=== PATIENT | female | born 1955 | race Caucasian/White ===

== ENCOUNTER 2018-12-28 20:18 | Inpatient (IN) | payer MEDICARE ==
[~2018-12-28] VITALS: Ht 165.1 cm; Wt 96.7 kg
[~2018-12-28 20:18] MED LIST: RT-ALBUTEROL SULF 2.5 MG/3 ML PRE-MIX VIAL ONE; RT-ALBUTEROL/IPRATROPIUM 3 ML (DUONEB) VIAL ONE
--- OUTSIDE RECORDS SUMMARY | 2018-12-28 20:21 | XMS REPORT ---
Author Author MARILEE DOOLEY Organization [facility] Address [address] [place] [address] Care Team Providers Care Stock Tracer Name Role Phone MARILEE DOOLEY Unavailable PROBLEMS Type Condition ICD9-CM Code TMB75-UR Code Onset Dates Condition Status SNOMED Code Problem Lumbar radiculopathy M54.16 Active 091064617 ALLERGIES Substance Reaction Event Type Date Status Tanac kidney function Drug Allergy Jan, Active ENCOUNTERS Encounter Location Date Diagnosis [facility] [id number] [place] [phone] Jan, Lumbar radiculopathy M54.16 [facility] [id number] [place] [phone] Jan, [facility] [id number] [place] [phone] Jan, Injury of left hip, initial encounter S79.912A IMMUNIZATIONS No Known Immunizations SOCIAL HISTORY Never Assessed REASON FOR VISIT Establish Care, left leg pain and was seen in walk in last week-Vale FUENTES PLAN OF CARE Activity Details Follow Up prn Reason: VITAL SIGNS Height 65 in 2018-01-15 Weight 222.2 lbs 2018-01-15 Temperature 98.4 degrees Fahrenheit 2018-01-15 Heart Rate 83 bpm 2018-01-15 Respiratory Rate 20 2018-01-15 Oximetry 94 % 2018-01-15 BMI 36.97 kg/m2 2018-01-15 Blood pressure systolic 130 mmHg 2018-01-15 Blood pressure diastolic 88 mmHg 2018-01-15 MEDICATIONS Medication Instructions Dosage Frequency Start Date End Date Duration Status Naprosyn 500 mg Orally every 12 hrs 1 tablet with food or milk as needed 12h 2018 Active Aleve 220 MG Orally every 12 hrs 1 tablet with food or milk as needed 12h Active Aspirin 325 MG Orally Once a day 1 tablet 24h Active RESULTS No Results PROCEDURES Procedure Date Ordered Result Body Site [facility] VISIT ESTABLISHED PATIENT January 15, 2018 INSTRUCTIONS MEDICATIONS ADMINISTERED No Known Medications MEDICAL (GENERAL) HISTORY Type Description Date Surgical History benign tumor removed off scalp 1999 Surgical History cataract surgery bilaterally 2016 Hospitalization History kidney function 12/1972
--- OUTSIDE RECORDS SUMMARY | 2018-12-28 20:22 | XMS REPORT ---
Author Author VERNA ZUÑIGA Organization [facility] Address [address] [place] [address] Care Team Providers Care Truck Striker Name Role Phone VERNA ZUÑIGA Unavailable PROBLEMS Type Condition ICD9-CM Code [id number]-VE Code Onset Dates Condition Status SNOMED Code Problem Lumbar radiculopathy M54.16 Active [id number] ALLERGIES No Information ENCOUNTERS Encounter Location Date Diagnosis [facility] [id number] [place] [phone] Jan, Lumbar radiculopathy M54.16 [facility] [id number], [place] [address] Jan, [facility] [id number] [place] [phone] Jan, Injury of left hip, initial encounter S79.912A IMMUNIZATIONS No Known Immunizations SOCIAL HISTORY Never Assessed REASON FOR VISIT PLAN OF CARE VITAL SIGNS MEDICATIONS Unknown Medications RESULTS No Results PROCEDURES No Known procedures INSTRUCTIONS MEDICATIONS ADMINISTERED No Known Medications MEDICAL (GENERAL) HISTORY Type Description Date Surgical History benign tumor removed off scalp 1999 Surgical History cataract surgery bilaterally 2016 Hospitalization History kidney function 12/1972
--- OUTSIDE RECORDS SUMMARY | 2018-12-28 20:22 | XMS REPORT ---
Author Author VERNA ZUÑIGA Organization [facility] Address [address] [place] [address] Care Team Providers Care Antenna Design Engineer Name Role Phone VERNA ZUÑIGA Unavailable PROBLEMS Type Condition ICD9-CM Code FSO68-MZ Code Onset Dates Condition Status SNOMED Code Problem Lumbar radiculopathy M54.16 Active 530805086 ALLERGIES No Known Allergies ENCOUNTERS Encounter Location Date Diagnosis [facility] [place] [address] [place] [phone] Jan, Lumbar radiculopathy M54.16 [facility] [id number] [address] Jan, [facility] [id number] [place] [phone] Jan, Injury of left hip, initial encounter S79.912A IMMUNIZATIONS Vaccine Route Administration Date Status TORADOL (IM) 60 MG/2ML (UP TO 15 MG) IM Intramuscular January 06, 2018 Administered SOCIAL HISTORY Never Assessed REASON FOR VISIT left hip pain for 3 weeks. fell on concrete. thought she was gonna be ok after t he fall...then 2 days ago...started having pain again et denies any injury the s econd time. [email or web address] PLAN OF CARE Activity Details Follow Up January 15 w/ Dr. Pickett Reason:establish care VITAL SIGNS Height 65 in 2018-01-06 Weight 215.4 lbs 2018-01-06 Temperature 98.3 degrees Fahrenheit 2018-01-06 Heart Rate 96 bpm 2018-01-06 Respiratory Rate 22 2018-01-06 BMI 35.84 kg/m2 2018-01-06 Blood pressure systolic 138 mmHg 2018-01-06 Blood pressure diastolic 92 mmHg 2018-01-06 MEDICATIONS Medication Instructions Dosage Frequency Start Date End Date Duration Status Aspirin 325 MG Orally Once a day 1 tablet 24h Active Ibuprofen 800 MG Orally Three times a day 1 tablet with food or milk as needed 8h Jan, Jan, 07 days Active Aleve 220 MG Orally every 12 hrs 1 tablet with food or milk as needed 12h Active RESULTS Name Result Date Reference Range Xray : Hip, Left 2 views (IN HOUSE) 2018-01-06 PROCEDURES Procedure Date Ordered Result Body Site X-RAY EXAM HIP UNI 2-3 VIEWS January 06, 2018 TORADOL (IM) 60 MG/2ML (UP TO 15 MG) January 06, 2018 [facility] VISIT NEW PATIENT January 06, 2018 THER/PROPH/DIAG INJ, SC/IM January 06, 2018 INSTRUCTIONS MEDICATIONS ADMINISTERED No Known Medications MEDICAL (GENERAL) HISTORY Type Description Date Surgical History benign tumor removed off scalp 1999 Surgical History cataract surgery bilaterally 2016 Hospitalization History kidney function 12/1972
[2018-12-28] MEDS ORDERED: NS IV 1000 ML 1,000 ML IV SCH (20:26)
[2018-12-28] MEDS ORDERED: RT-ALBUTEROL SULF 2.5 MG/3 ML PRE-MIX VIAL INH STA ×2 (20:26→22:29)
[2018-12-28] MEDS ORDERED: RT-ALBUTEROL/IPRATROPIUM 3 ML (DUONEB) VIAL INH ONE (20:30)
[2018-12-28 20:39] LABS: BASOPHILS % (AUTO) 0 % (0-10); EOSINOPHILS # (AUTO) 0.1 10^3/uL (0.0-0.3); EOSINOPHILS % (AUTO) 0 % (0-10); HEMATOCRIT 40 % (35-52); HEMOGLOBIN 13.3 G/DL (11.5-16.0); LYMPHOCYTES # (AUTO) 3.4 X 10^3 (1.0-4.0); LYMPHOCYTES % (AUTO) 28 % (12-44); MEAN CORPUSCULAR HEMOGLOBIN 31 PG (25-34); MEAN CORPUSCULAR HGB CONC 33 G/DL (32-36); MEAN CORPUSCULAR VOLUME 92 FL (80-99); MEAN PLATELET VOLUME 11.7 FL (7.4-10.4); MONOCYTES # (AUTO) 1.3 X 10^3 (0.0-1.0); MONOCYTES % (AUTO) 11 % (0-12); NEUTROPHILS # (AUTO) 7.5 X 10^3 (1.8-7.8); NEUTROPHILS % (AUTO) 61 % (42-75); PLATELET COUNT 121 10^3/uL (130-400); RED CELL DISTRIBUTION WIDTH 13.8 % (10.0-14.5); WHITE BLOOD COUNT 12.2 10^3/uL (4.3-11.0)
[2018-12-28 20:48] LABS: INR 1.1 (0.8-1.4); PROTHROMBIN TIME PATIENT 14.1 SEC (12.2-14.7)
--- NOTE | 2018-12-28 20:50 | Diagnostic Imaging Report ---
PATIENT HISTORY: Chest pain and shortness of breath. TECHNIQUE: Single frontal view of the chest COMPARISON: None FINDINGS: Lung volumes are normal. There are mildly increased interstitial opacities throughout the lungs bilaterally. There is fluid in the right minor fissure. Mild airspace opacity is seen in the right upper lobe. The cardiac silhouette is upper normal in size. No pneumothorax or pleural effusion is seen. IMPRESSION: 1. Interstitial opacities bilaterally with minimal airspace opacity in the right upper lobe. Findings are thought to be due to edema, or possibly infection. 2. A small amount of fluid in the right minor fissure. Dictated by: Dictated on workstation # [id number]
[2018-12-28 20:55] LABS: ALANINE AMINOTRANSFERASE 42 U/L (0-55); ALBUMIN 3.7 GM/DL (3.2-4.5); ALKALINE PHOSPHATASE 116 U/L (40-136); BILIRUBIN,TOTAL 1.3 MG/DL (0.1-1.0); BUN/CREATININE RATIO 14; CALCIUM 8.4 MG/DL (8.5-10.1); CARBON DIOXIDE 23 MMOL/L (21-32); CHLORIDE 102 MMOL/L (98-107); CREATININE SERUM 0.73 MG/DL (0.60-1.30); GFR ESTIMATED > 60; GLUCOSE 107 MG/DL (70-105); POTASSIUM 3.8 MMOL/L (3.6-5.0); SODIUM 136 MMOL/L (135-145); TOTAL PROTEIN 6.3 GM/DL (6.4-8.2)
--- NOTE | 2018-12-28 20:56 | ED General ---
General Chief Complaint: Respiratory Problems Stated Complaint: SOB Nursing Triage Note: Pt amb to room #5 with audible breath sounds heard. a&ox4. c/o soa and fever that began yesterday. Pt reports throughout this day severity of symptoms increased. Pt statets, "i think i have pneumonia. Initial o2 sat 88% via ra. Nursing Sepsis Screen: Possible Sepsis Risk Source of Information: Patient Exam Limitations: No Limitations (JUANA JOAQUIN MEDICAL STUDENT) History of Present Illness Date Seen by Provider: Dec 28, 2018 Time Seen by Provider: 20:23 Initial Comments Pt presents to ED c/o SOB and chills since yesterday morning. Reports productive cough and brown sputum without blood. Pt admits to sick contacts and feels like she may have pneumonia again. Pt has seasonal allergies that frequently cause flares. Usually Nyquil and benadryl improves her breathing, but failed to lessen her symptoms this time. Admits to long history of bronchitis and pneumonia. Pt denies the use of home oxygen or inhalers. Occasionally, she sees [facility], but notes that she avoids doctors "because [she] has not had good experiences with them". Timing/Duration: 1-2 Days Severity: Severe Associated Systoms: No Chest Pain; Cough, Fever/Chills; No Nausea/Vomiting; Shortness of Air; No Weakness (JUANA JOAQUIN STUDENT) Severity: Moderate Associated Systoms: Cough, Fever/Chills, Shortness of Air (SKYE STEVENS MD) Allergies and Home Medications Allergies Coded Allergies: No Known Drug Allergies (Unverified , 12/28/18) Patient Home Medication List Home Medication List Reviewed: Yes (JUANA JOAQUIN STUDENT) Home Medication List Reviewed: Yes (SKYE STEVENS MD) Review of Systems Review of Systems Constitutional: chills, fever EENTM: no symptoms reported Respiratory: phlegm, short of breath Cardiovascular: No chest pain Gastrointestinal: no symptoms reported; No abdominal pain, No constipation, No diarrhea Genitourinary: no symptoms reported Musculoskeletal: no symptoms reported Skin: no symptoms reported Psychiatric/Neurological: No Symptoms Reported Hematologic/Lymphatic: No Symptoms Reported Immunological/Allergic: no symptoms reported (JUANA JOAQUIN STUDENT) Respiratory: cough, short of breath Cardiovascular: No edema, No palpitations Gastrointestinal: No nausea, No vomiting (SKYE STEVNES MD) All Other Systems Reviewed Negative Unless Noted: Yes (SKYE STEVENS MD) Past Awuvhfs-Jfylhn-Lnhigv Hx Past Med/Social Hx: Reviewed Nursing Past Med/Soc Hx (SKYE SETVENS MD) Patient Social History Alcohol Use: Regular Use (2-3 drinks per day) Number of Drinks Today: 0 Alcohol Beverage of Choice: Whiskey Recreational Drug Use: No (HX: IV METHAMPHETAMINES ) Smoking Status: Current Everyday Smoker Type Used: Cigarettes (1ppd) 2nd Hand Smoke Exposure: Yes Recent Foreign Travel: No Contact w/Someone Who Travel: No Recent Infectious Disease Expo: No Recent Hopitalizations: No (JUANA JOAQUIN MEDICAL STUDENT) Seasonal Allergies Seasonal Allergies: No (JUANA JOAQUIN MEDICAL STUDENT) Past Medical History Surgeries: No Respiratory: Yes Pneumonia, Chronic Bronchitis Cardiac: No Neurological: No Genitourinary: No Gastrointestinal: No Musculoskeletal: Yes Chronic Back Pain Endocrine: No Cancer: No Integumentary: No (JUANA JOAQUIN MEDICAL STUDENT) Family Medical History Reviewed Nursing Family Hx (SKYE STEVENS MD) No Pertinent Family Hx (SKYE STEVENS MD) Physical Exam-Suspected Sepsis Physical Exam Vital Signs Vital Signs - First Documented (SKYE STEVENS MD) Vital Signs Capillary Refill : Less Than 3 Seconds (JUANA JOAQUIN MEDICAL STUDENT) Blood Pressure Mean: 113 Height, Weight, BMI Height: 5'5.00" Weight: 250lbs. oz. 113.642288gk; BMI Method:Stated General Appearance: Severe Distress Eyes: Bilateral Eye PERRL, Bilateral Eye EOMI HEENT: PERRL/EOMI, Pharynx Normal Neck: Full Range of Motion, Non Tender Respiratory: Respiratory Distress, Wheezing (expiratory) Cardiovascular: Regular Rate, Rhythm, No Murmur, Normal Peripheral Pulses Gastrointestinal: Normal Bowel Sounds, Non Tender, Soft Back: Normal Inspection, No Vertebral Tenderness Extremity: No Pedal Edema, Calf Tenderness Neurologic/Psychiatric: Alert, Oriented x3 Skin: normal color, warm/dry (JUANA JOAQUIN MEDICAL STUDENT) General Appearance: WD/WN, Moderate Distress HEENT: PERRL/EOMI, Pharynx Normal Neck: Full Range of Motion, Non Tender, Supple Respiratory: Respiratory Distress, Wheezing (expiratory) Cardiovascular: Regular Rate, Rhythm, No Murmur Gastrointestinal: Non Tender, Soft Extremity: Normal Range of Motion, Non Tender, No Pedal Edema Neurologic/Psychiatric: Alert, Oriented x3 Skin: normal color, warm/dry (SKYE STEVENS MD) Focused Exam Lactate Level 12/28/18 20:26: Lactic Acid Level 1.34 (SKYE STEVENS MD) Lactic Acid Level Laboratory Tests Test 12/28/18 20:26 Lactic Acid Level 1.34 MMOL/L (0.50-2.00) (SKYE STEVENS MD) Progress/Results/Core Measures Suspected Sepsis Recent Fever Within 48 Hours: Yes Infection Criteria Present: Suspected New Infection New/Unexplained Altered Menta: No Sepsis Screen: Possible Sepsis Risk SIRS Temperature:99.0 Pulse: 104 Respiratory Rate: 26 Laboratory Tests 12/28/18 20:26: White Blood Count 12.2H Blood Pressure 146 /97 Mean: 113 12/28/18 20:26: Lactic Acid Level 1.34 Laboratory Tests 12/28/18 20:26: Creatinine 0.73, INR Comment 1.1, Platelet Count 121L, Total Bilirubin 1.3H (JUANA JOAQUIN MEDICAL STUDENT) Results/Orders Lab Results Laboratory Tests Test 12/28/18 20:26 Range/Units White Blood Count 12.2 H 4.3-11.0 10^3/uL Red Blood Count 4.33 L 4.35-5.85 10^6/uL Hemoglobin 13.3 11.5-16.0 G/DL Hematocrit 40 35-52 % Mean Corpuscular Volume 92 80-99 FL Mean Corpuscular Hemoglobin 31 25-34 PG Mean Corpuscular Hemoglobin Concent 33 32-36 G/DL Red Cell Distribution Width 13.8 10.0-14.5 % Platelet Count 121 L 130-400 10^3/uL Mean Platelet Volume 11.7 H 7.4-10.4 FL Neutrophils (%) (Auto) 61 42-75 % Lymphocytes (%) (Auto) 28 12-44 % Monocytes (%) (Auto) 11 0-12 % Eosinophils (%) (Auto) 0 0-10 % Basophils (%) (Auto) 0 0-10 % Neutrophils # (Auto) 7.5 1.8-7.8 X 10^3 Lymphocytes # (Auto) 3.4 1.0-4.0 X 10^3 Monocytes # (Auto) 1.3 H 0.0-1.0 X 10^3 Eosinophils # (Auto) 0.1 0.0-0.3 10^3/uL Basophils # (Auto) 0.0 0.0-0.1 10^3/uL Prothrombin Time 14.1 12.2-14.7 SEC INR Comment 1.1 0.8-1.4 Activated Partial Thromboplast Time 36 H 24-35 SEC Sodium Level 136 135-145 MMOL/L Potassium Level 3.8 3.6-5.0 MMOL/L Chloride Level 102 98-107 MMOL/L Carbon Dioxide Level 23 21-32 MMOL/L Anion Gap 11 5-14 MMOL/L Blood Urea Nitrogen 10 7-18 MG/DL Creatinine 0.73 0.60-1.30 MG/DL Estimat Glomerular Filtration Rate > 60 BUN/Creatinine Ratio 14 Glucose Level 107 H 70-105 MG/DL Lactic Acid Level 1.34 0.50-2.00 MMOL/L Calcium Level 8.4 L 8.5-10.1 MG/DL Corrected Calcium 8.6 8.5-10.1 MG/DL Total Bilirubin 1.3 H 0.1-1.0 MG/DL Aspartate Amino Transf (AST/SGOT) 52 H 5-34 U/L Alanine Aminotransferase (ALT/SGPT) 42 0-55 U/L Alkaline Phosphatase 116 40-136 U/L Troponin I < 0.028 <0.028 NG/ML Total Protein 6.3 L 6.4-8.2 GM/DL Albumin 3.7 3.2-4.5 GM/DL (SKYE STEVENS MD) My Orders Orders - SKYE STEVENS MD Albuterol Pre-Mix Nebs (Rt) (Proventil (12/28/18 20:18) Albuterol/Ipra Inhalation Soln (Duoneb I (12/28/18 20:18) Cbc With Automated Diff (12/28/18 20:26) Comprehensive Metabolic Panel (12/28/18 20:26) Blood Culture (12/28/18 20:26) Sputum Culture (12/28/18 20:26) Urinalysis (12/28/18 20:26) Urine Culture (12/28/18 20:26) Protime With Inr (12/28/18 20:26) Partial Thromboplastin Time (12/28/18 20:26) Chest 1 View, Ap/Pa Only (12/28/18 20:26) Ed Iv/Invasive Line Start (12/28/18 20:26) Ekg Tracing (12/28/18 20:26) Troponin I (12/28/18 20:26) Vital Signs Adult Sepsis Patie Q15M (12/28/18 20:26) O2 (12/28/18 20:26) Remove Rings In Anticipation O (12/28/18 20:26) Lactic Acid Analyzer (12/28/18 20:26) Ns Iv 1000 Ml (Sodium Chloride 0.9%) (12/28/18 20:26) Albuterol Pre-Mix Nebs (Rt) (Proventil (12/28/18 20:26) Albuterol/Ipra Inhalation Soln (Duoneb I (12/28/18 20:30) Svn Small Volume Nebulizer (12/28/18 20:26) Svn Small Volume Nebulizer (12/28/18 20:26) Albuterol Pre-Mix Nebs (Rt) (Proventil (12/28/18 22:29) Methylprednisolone Sod Succ (Solu-Medrol (12/28/18 22:29) Svn Small Volume Nebulizer (12/28/18 22:29) Ceftriaxone For Iv Use (Rocephin For I (12/28/18 22:30) (SKYE STEVENS MD) Medications Given in ED Current Medications Medications Dose Ordered Sig/Brian Route Start Time Stop Time Status Last Admin Dose Admin Albuterol Sulfate 2.5 mg STK-MED ONCE .ROUTE 12/28/18 20:18 12/28/18 20:23 DC 12/28/18 20:39 2.5 MG Albuterol/ Ipratropium 3 ml STK-MED ONCE .ROUTE 12/28/18 20:18 12/28/18 20:23 DC 12/28/18 20:29 3 ML (SKYE STEVENS MD) Vital Signs/I&O 12/28/18 12/28/18 12/28/18 12/28/18 20:18 20:18 20:31 20:37 Temp 99.0 Pulse 104 Resp 26 B/P (MAP) 146/97 (113) Pulse Ox 95 95 94 O2 Delivery Nasal Cannula Nasal Cannula Nasal Cannula Nasal Cannula O2 Flow Rate 2.00 2.00 2.00 2.00 (SKYE STEVENS MD) Vital Signs/I&O Capillary Refill : Less Than 3 Seconds (JUANA JOAQUIN MEDICAL STUDENT) Blood Pressure Mean: 113 Progress Note : Progress Note I have seen and evaluated the patient and agree with above except as indicated. I have directed the plan of care. Patient is here with 2 days of increasing shortness of breath and cough. She's been unable to smoke during that time. She has tried [id number] medicines without relief. Arrives in some in extremis and required oxygen. Improved with oxygen. DuoNeb and albuterol 2 ordered as well as labs for septic workup. This did help greatly but then started having some mild respiratory distress again. Albuterol neb repeated. Given patient's finding of pneumonia and COPD, admission is indicated. Rocephin 1 g IV ordered. We will initiate community-acquired pneumonia protocol. I did discuss the case with Dr. Ziegler [phone] and she accepts patient for admission, inpatient status. Patient agrees with plan. Solu-Medrol 125 mg IV initiated and will be continued. (SKYE STEVENS MD) ECG Initial ECG Impression Date: Dec 28, 2018 Initial ECG Impression Time: 20:22 Initial ECG Rate: 99 Initial ECG Rhythm: Normal Sinus Comment Sinus rhythm with left axis deviation. No evidence of ST elevation [place]. No previous available for comparison. Interpreted by me. (SKYE STEVENS MD) Diagnostic Imaging Diagonstic Imaging: Xray Comments NAME: QUETA DE LEON [facility] REC#: [id number] PT STATUS: REG ER : 1955 PHYSICIAN: SKYE STEVENS MD ADMIT DATE: 12/28/18/ER Draft Date of Exam:12/28/18 CHEST 1 VIEW, AP/PA ONLY PATIENT HISTORY: Chest pain and shortness of breath. TECHNIQUE: Single frontal view of the chest COMPARISON: None FINDINGS: Lung volumes are normal. There are mildly increased interstitial opacities throughout the lungs bilaterally. There is fluid in the right minor fissure. Mild airspace opacity is seen in the right upper lobe. The cardiac silhouette is upper normal in size. No pneumothorax or pleural effusion is seen. IMPRESSION: 1. Interstitial opacities bilaterally with minimal airspace opacity in the right upper lobe. Findings are thought to be due to edema, or possibly infection. 2. A small amount of fluid in the right minor fissure. Dictated on workstation # [id number] Dict: 12/28/182043 Trans: 12/28/182049 [facility] [id number] Interpreted by: NORMA MARES MD Electronically signed by: (JUANA JOAQUIN MEDICAL STUDENT) Reviewed: Reviewed by Me (SKYE STEVENS MD) Departure Communication (Admissions) Time/Spoke to Admitting Phy: 22:20 (SKYE STEVENS MD) Impression Primary Impression: Acute exacerbation of chronic obstructive pulmonary disease (COPD) Additional Impression: Community acquired pneumonia Qualified Codes: J18.9 - Pneumonia, unspecified organism Disposition: ADMITTED INPATIENT Condition: Stable Admissions Decision to Admit Reason: Admit from ER (General) Decision to Admit/Date: Dec 28, 2018 Time/Decision to Admit Time: 22:20 (SKYE STEVENS MD) Departure-Patient Inst. Referrals: UNKNOWN (PCP/Family) Primary Care Physician JUANA JOAQUIN MEDICAL STUDENT Dec 28, 2018 20:56 SKYE STEVENS MD Dec 28, 2018 22:39
[2018-12-28] MEDS ORDERED: methylPREDNISolone 125 MG (Solu-MEDROL) VIAL IV STA (22:29)
[2018-12-28] MEDS ORDERED: cefTRIAXone FOR IV USE 1,000 MG in WATER (STERILE) FOR INJECTION 10 ML IV ONE (22:30)
[2018-12-28] MEDS ORDERED: ACETAMINOPHEN 500 MG TAB (TYLENOL) PO STA (22:44)
[2018-12-28 23:20] VITALS: BP 107/56
--- NOTE | 2018-12-28 23:20 | NUR ---
QUETA DE LEON Osmel admitted to room 427-1, with an admitting diagnosis of Community acquired pneumonia and COPD, on 12/28/18 from ER via BED, accompanied by er staff. QUETA DE LEON introduced to surroundings, call light, bed controls, phone, TV, temperature control, lights, meal times, smoking policy, visitor policy, side rail policy, bathrooms and showers. Patient Rights given to patient in the handbook. QUETA DE LEON verbalizes understanding that [facility] is not responsible for the loss or damage to any personal effects or valuables that are kept in the patients possession during their hospitalization.
[2018-12-28] MEDS ORDERED: NS IV 1000 ML 1,000 ML ONE (23:35)
[2018-12-28] MEDS: NS IV 1000 ML 1,000 ML IV SCH (23:45)
[2018-12-28] MEDS ORDERED: AZITHROMYCIN 500 MG/NS 250 ML IVPB IV ONE ×2 (23:45)
[2018-12-29] VITALS (7 sets, daily range): BP systolic 108–126; BP diastolic 59–91
--- NOTE | 2018-12-29 00:05 | NUR ---
UA and sputum obtained and sent to lab.
[2018-12-29 00:19] LABS: BILIRUBIN,URINE 2+ (NEGATIVE); CLARITY,URINE CLEAR; COLOR,URINE AMBER; GLUCOSE, URINE (UA) NEGATIVE (NEGATIVE); KETONES,URINE 2+ (NEGATIVE); LEUKOCYTE ESTERASE ,URINE 1+ (NEGATIVE); NITRITE,URINE NEGATIVE (NEGATIVE); PH,URINE 5 (5-9); PROTEIN,URINE 1+ (NEGATIVE); UROBILINOGEN,URINE 12 MG/DL (NORMAL)
[2018-12-29 00:27] LABS: BACTERIA,URINE MODERATE /HPF
[2018-12-29] MEDS ORDERED: RT-ALBUTEROL/IPRATROPIUM 3 ML (DUONEB) VIAL INH PRN (03:15)
[2018-12-29] MEDS ORDERED: RT-ALBUTEROL/IPRATROPIUM 3 ML (DUONEB) VIAL ONE (03:49)
[2018-12-29] MEDS: RT-ALBUTEROL/IPRATROPIUM 3 ML (DUONEB) VIAL INH SCH ×5 (03:59→23:02)
[2018-12-29] MEDS: methylPREDNISolone 125 MG (Solu-MEDROL) VIAL IV SCH ×4 (05:34→23:18)
[2018-12-29 05:53] LABS: BASOPHILS % (AUTO) 0 % (0-10); EOSINOPHILS % (AUTO) 0 % (0-10); HEMATOCRIT 40 % (35-52); HEMOGLOBIN 13.2 G/DL (11.5-16.0); LYMPHOCYTES # (AUTO) 1.8 X 10^3 (1.0-4.0); LYMPHOCYTES % (AUTO) 23 % (12-44); MEAN CORPUSCULAR HEMOGLOBIN 31 PG (25-34); MEAN CORPUSCULAR HGB CONC 33 G/DL (32-36); MEAN CORPUSCULAR VOLUME 94 FL (80-99); MONOCYTES # (AUTO) 0.3 X 10^3 (0.0-1.0); MONOCYTES % (AUTO) 4 % (0-12); NEUTROPHILS # (AUTO) 5.6 X 10^3 (1.8-7.8); NEUTROPHILS % (AUTO) 73 % (42-75); PLATELET COUNT 96 10^3/uL (130-400); RED CELL DISTRIBUTION WIDTH 13.9 % (10.0-14.5); WHITE BLOOD COUNT 7.8 10^3/uL (4.3-11.0)
[2018-12-29 06:10] LABS: ALANINE AMINOTRANSFERASE 38 U/L (0-55); ALBUMIN 3.4 GM/DL (3.2-4.5); ALKALINE PHOSPHATASE 103 U/L (40-136); BILIRUBIN,TOTAL 0.9 MG/DL (0.1-1.0); BUN/CREATININE RATIO 12; CALCIUM 8.4 MG/DL (8.5-10.1); CARBON DIOXIDE 26 MMOL/L (21-32); CHLORIDE 105 MMOL/L (98-107); CREATININE SERUM 0.77 MG/DL (0.60-1.30); GFR ESTIMATED > 60; GLUCOSE 188 MG/DL (70-105); POTASSIUM 4.1 MMOL/L (3.6-5.0); SODIUM 141 MMOL/L (135-145); TOTAL PROTEIN 6.3 GM/DL (6.4-8.2)
[2018-12-29] MEDS: AZITHROMYCIN 250 MG TAB (ZITHROMAX) PO SCH (08:02)
--- NOTE | 2018-12-29 10:50 | History & Physicial (CHS) ---
HPI History of Present Illness: Shortness of breath x 1 day, productive cough, felt feverish, wrapped up in blanket and "sweated it out". She had some chest pain initially with coughing, better now. She is not on supplemental oxygen at home, does not use any inhalers . She denies previous diagnosis of COPD. She does smoke 1 ppd and is interested in quitting, but has not been very motivated in the past. She is very anxious to go home today. Date seen by provider: Dec 29, 2018 Time Seen by Provider: 10:45 Attending Physician Black Ziegler MD PCP Kane Pickett MD Consult Date of Admission Dec 28, 2018 at 22:20 Home Medications Home Medications Reviewed patient Home Medication Reconciliation performed by pharmacy medication reconciliations civil cadd technician and/or nursing. Patients Allergies have been reviewed. Allergies Coded Allergies: No Known Drug Allergies (Unverified , 12/28/18) [id number] Hx Patient Social History Alcohol Use: Regular Use (2 oz of whiskey per day) Recreational Drug Use: No (HX: IV METHAMPHETAMINES quit at age 21) Smoking Status: Current Everyday Smoker Type Used: Cigarettes 2nd Hand Smoke Exposure: Yes Recent Foreign Travel: No Contact w/other who traveled: No Recent Hopitalizations: No Recent Infectious Disease Expo: No Past Medical History PMHx: Low back pain PSurgHx: Cataract surgery Family Medical History Family History: Alzheimer's disease 19 MOTHER Asthma G8 SISTER Cataracts 19 MOTHER G8 SISTER Colitis G8 SISTER Deafness or hearing loss 19 FATHER Dementia G8 SISTER FH: leukemia 19 FATHER FH: lung cancer G8 SISTER Hypertension 19 FATHER 19 MOTHER Review of Systems (CHC) Constitutional: chills, fever Respiratory: see HPI Cardiovascular: see HPI Gastrointestinal: No abdominal pain, No constipation, No diarrhea, No nausea, No vomiting Genitourinary: No dysuria Musculoskeletal: back pain Skin: No rash Psychiatric/Neurological: Denies Anxiety, Denies Depressed Reviewed Test Results Reviewed Test Results Lab Laboratory Tests 12/28/18 20:26 12/29/18 05:30 Radiology CXR 12/28 IMPRESSION: 1. Interstitial opacities bilaterally with minimal airspace opacity in the right upper lobe. Findings are thought to be due to edema, or possibly infection. 2. A small amount of fluid in the right minor fissure. Physical Exam-(CHC) Physical Exam Vital Signs VS - Last 72 Hours, by Label 12/28/18 12/28/18 12/28/18 12/28/18 20:18 20:18 20:31 20:37 Temp 99.0 Pulse 104 Resp 26 B/P (MAP) 146/97 (113) Pulse Ox 95 95 94 O2 Delivery Nasal Cannula Nasal Cannula Nasal Cannula Nasal Cannula O2 Flow Rate 2.00 2.00 2.00 2.00 12/28/18 12/28/18 12/28/18 12/28/18 22:56 23:15 23:20 23:20 Temp 99.0 98.5 Pulse 97 96 Resp B/P (MAP) 126/91 (103) 107/56 Pulse Ox 94 96 96 O2 Delivery Nasal Cannula Nasal Cannula Nasal Cannula Nasal Cannula O2 Flow Rate 2.00 2.00 2.00 2.00 2.00 12/28/18 12/29/18 12/29/18 12/29/18 23:20 00:30 03:30 08:00 Temp 98.5 97.8 Pulse 96 97 82 Resp B/P (MAP) 107/56 (73) 116/59 (78) Pulse Ox 96 94 95 95 O2 Delivery Nasal Cannula Nasal Cannula Nasal Cannula O2 Flow Rate 2.00 2.00 2.00 12/29/18 08:00 Temp 97.8 Pulse 67 Resp 22 B/P (MAP) 110/63 (79) Pulse Ox 95 O2 Delivery Nasal Cannula O2 Flow Rate 2.00 Capillary Refill : Less Than 3 Seconds General Appearance: WD/WN, no apparent distress Respiratory: decreased breath sounds Cardiovascular: regular rate, rhythm, no murmur Extremities: no pedal edema Neurologic/Psychiatric: alert, normal mood/affect Skin: normal color, warm/dry Assessment/Plan Assessment/Plan Admission Status: Inpatient Order (span 2 midnights) Reason for Inpatient Admission: COPD exacerbation requiring multiple breathing treatments and supplemental oxygen with superimposed pneumonia. (1) Acute exacerbation of chronic obstructive pulmonary disease (COPD) Status: Acute Assessment & Plan: No previous diagnosis, but highly suspect COPD, recommend PFT after illness resolved. Solumedrol 60 mg q6h. Duonebs. (2) Community acquired pneumonia Status: Acute Assessment & Plan: Ceftriaxone and azithromycin. Qualifiers: Qualified Codes: J18.9 - Pneumonia, unspecified organism (3) Tobacco use Status: Chronic Assessment & Plan: Discussed cessation and medications to aid in cessation, she may be interested depending on insurance coverage. (4) DVT prophylaxis Status: Acute Assessment & Plan: Enoxaparin (5) Discharge planning issues Status: Acute Assessment & Plan: She is wanting to go home today, discussed I would not recommend it, but if she is able to maintain oxygen without supplemental oxygen, will discharge per her wishes. If she continues to require supplemental oxygen will continue IV solumedrol and reassess tomorrow. Clinical Quality Measures DVT/VTE Risk/Contraindication: Risk Factor Score Per Nursin RFS Level Per Nursing on Admit: 4+=Very High BLACK ZIEGLER MD Dec 29, 2018 10:50
[2018-12-29] MEDS ORDERED: NAPR-1033 PO (11:04)
[2018-12-29] MEDS ORDERED: NAPR-1070 PO (11:04)
[2018-12-29] MEDS ORDERED: DIPH25CA79 PO (11:04)
--- NOTE | 2018-12-29 11:07 | NUR ---
SPOKE WITH PATIENT SHE INDICATES SHE DOES NOT TAKE ANY PRESCRIPTION MEDICATIONS. OTC MEDICATIONS: NAPROXEN 440MG PRN PAIN BENADRYL 25MG 1 T PRN FOR ALLERGIES
[2018-12-29] MEDS: ENOXAPARIN 40 MG/0.4 ML (LOVENOX) SYR SQ SCH (12:09)
[2018-12-29] MEDS: NS IV 1000 ML 1,000 ML IV SCH ×2 (12:10→23:18)
[2018-12-29] MEDS: NICOTINE 21 MG (NICODERM) PATCH TD SCH (15:05)
--- NOTE | 2018-12-29 17:48 | NUR ---
1710 - [facility] NOTIFIED THIS RN THAT PATIENT WAS ANXIOUS AND CRYING AND WANTED TO PULLER HER IV OUT AND LEAVE. THIS RN WENT IN ROOM 427 AND FOUND PATIENT WITH OXYGEN OFF AND CRYING. OXYGEN SATURATION CHECKED AND PATIENT WAS 95% ON ROOM AIR. PATIENT STATED SHE HAD BEEN OFF THE OXYGEN FOR AT LEAST 15 MINUTES. THIS RN SAT WITH PATIENT AND HELPED CALM HER NERVES. THIS RN AND PATIENT THEN WALKED THE HALLS WITH OXYGEN MONITOR ON FINGER. PATIENT MAINTAINED OXYGEN SATURATIONS OF 93 AND ABOVE DURING WALK. 1740 - THIS RN WENT BACK TO PATIENT'S ROOM AND CHECKED HER OXYGEN SATURATION. PATIENT WAS 94 ON ROOM AIR. PATIENT DID STATE SHE HAD BEEN COUGHING AND FELT SLIGHTLY SHORT OF BREATH. NASAL CANNULA APPLIED AND OXYGEN SET TO 1L FLOW. THIS RN INSTRUCTED PATIENT TO CALL IF SHE FELT ANY MORE SHORTNESS OF BREATH AND WE WOULD CONTINUE TO MONITOR.
[2018-12-29] MEDS ORDERED: MELATONIN 3 MG TABLET PO SCH (21:00)
[2018-12-29] MEDS ORDERED: cefTRIAXone 1,000 MG/SWFI 10 ML IV PUSH IV SCH ×2 (21:00)
[2018-12-29] MEDS ORDERED: BENZONATATE 100 MG (TESSALON) CAPSULE PO ONE (21:41)
[2018-12-29] MEDS: BENZONATATE 100 MG (TESSALON) CAPSULE PO SCH (21:59)
[2018-12-29] MEDS ORDERED: PROMETHAZINE/ CODEINE SYRUP 5 ML UDC ONE (23:06)
[2018-12-29] MEDS: PROMETHAZINE/ CODEINE SYRUP 5 ML UDC PO PRN (23:18)
[2018-12-30] MEDS: RT-ALBUTEROL/IPRATROPIUM 3 ML (DUONEB) VIAL INH SCH ×3 (03:22→12:39)
[2018-12-30] MEDS: methylPREDNISolone 125 MG (Solu-MEDROL) VIAL IV SCH ×2 (05:51→11:36)
[2018-12-30 08:00] VITALS: BP 111/65
[2018-12-30] MEDS: NICOTINE 21 MG (NICODERM) PATCH TD SCH (08:22)
[2018-12-30] MEDS: AZITHROMYCIN 250 MG TAB (ZITHROMAX) PO SCH (08:22)
[2018-12-30] MEDS: BENZONATATE 100 MG (TESSALON) CAPSULE PO SCH ×2 (08:22→13:12)
[2018-12-30] MEDS: PROMETHAZINE/ CODEINE SYRUP 5 ML UDC PO PRN ×2 (08:23→13:13)
[2018-12-30] MEDS ORDERED: PATCH REMOVAL TP SCH (08:59)
[2018-12-30] MEDS: ENOXAPARIN 40 MG/0.4 ML (LOVENOX) SYR SQ SCH (11:36)
--- NOTE | 2018-12-30 13:13 | NUR ---
PATIENT WAS ON 1 L THIS AM AND WAS 92%; PATIENT WAS TAKEN OFF O2 AND WAS OFF FOR ATLEAST 60 MINS AND WAS SATTING AT 94%; PATIENT WALKED FOR 6 MINS AND DID NOT DROP BELOW 89%. PATIENT IS NOT REQUIRING O2 AT REST OR ON EXERTION AT THIS TIME
--- NOTE | 2018-12-30 13:16 | NUR ---
DR VILLALOBOS INFORMED BY THIS RN THAT PT DOES NOT QUALIFY FOR HOME O2. WILL AWAIT NEW ORDERS.
[2018-12-30] MEDS ORDERED: NICO-588 TD (13:56)
[2018-12-30] MEDS ORDERED: TIOT4MIS2 IH (13:56)
[2018-12-30] MEDS ORDERED: BENZ100C18 PO (13:56)
[2018-12-30] MEDS ORDERED: RT-ALBUINH INH (13:56)
[2018-12-30] MEDS ORDERED: PRD10T PO (13:56)
[2018-12-30] MEDS ORDERED: AZIT250T12 PO (13:56)
--- NOTE | 2018-12-30 13:59 | Discharge Instructions ---
Discharge [facility] Discharge Medications New, Converted or Re-Newed RX: Transmitted to Pharmacy New Medications: Albuterol Sulfate (Proventil Hfa) 6.7 Gm Hfa.aer.ad 2 PUFF INH Q6H for SHORTNESS OF BREATH, #1 EACH 0 Refills Prednisone (Prednisone) 10 Mg Tab 0 PO UD, #21 TAB 0 Refills Take 6 tabs (60mg) daily, decrease by 1 tab (10mg) daily. Tiotropium [place] (Spiriva Respimat 2.5MCG/ACTUATION) 4 Gm Mist.inhal 2 PUFF IH DAILY, #1 INH 0 Refills Azithromycin (Azithromycin) 250 Mg Tablet 250 MG PO DAILY, #4 TAB 0 Refills Benzonatate (Tessalon Perles) 100 Mg Capsule 100 MG PO TID, #30 CAP 0 Refills Nicotine (Nicotine Patch) 1 Each Patch.td24 21 MG TD DAILY@0900, #42 PATCH 0 Refills Continued Medications: Diphenhydramine HCl (Benadryl) 25 Mg Capsule 25 MG PO DAILY PRN for ALLERGIES, CAP Naproxen Sodium (Naproxen Sodium) 220 Mg Tablet 440 MG PO Q8H PRN for PAIN-MILD, TAB Patient Instructions Goal/Follow Up Appt: Follow up with Dr. Dooley on 01/05 at 11:40 am. Return to The [facility] For: Worsening shortness of breath in spite of inhalers, inability to take medications Activity & Diet Discharge Diet: Regular Diet Activity as Tolerated: Yes Orders-Post D/C & Referrals Pneu Vac Indicated: Yes Copy Copies To 1: MARILEE DOOLEY MD, BETHANY N MD Dec 30, 2018 13:59
--- NOTE | 2018-12-30 14:00 | Discharge Summary ---
Diagnosis/Chief Complaint Date of Admission Dec 28, 2018 at 22:20 Date of Discharge Dec 30, 2018 Admission Diagnosis Admission Diagnosis Acute exacerbation of COPD Pneumonia Discharge Diagnosis See problem list Problems/Diagnosis: (1) Acute exacerbation of chronic obstructive pulmonary disease (COPD) Assessment & Plan: No previous diagnosis, but highly suspect COPD, recommend PFT after illness resolved. Solumedrol 60 mg q6h. Duonebs. Weaned off of supplemental O2 on day of d/c and given oral prednisone, Spiriva and Proventil scripts. Status: Acute (2) Community acquired pneumonia Assessment & Plan: Ceftriaxone and azithromycin. Qualifiers: Qualified Codes: J18.9 - Pneumonia, unspecified organism Status: Acute (3) Tobacco use Assessment & Plan: Discussed cessation and medications to aid in cessation, she may be interested depending on insurance coverage. Script sent for nicotine patches. Status: Chronic Chief Complaint/HPI Chief Complaint/HPI Shortness of breath x 1 day, productive cough, felt feverish, wrapped up in blanket and "sweated it out". She had some chest pain initially with coughing, better now. She is not on supplemental oxygen at home, does not use any inhalers. She denies previous diagnosis of COPD. She does smoke 1 ppd and is interested in quitting, but has not been very motivated in the past. She is very anxious to go home today. Discharge Summary-Simple/Stand Consultations Discharge Physical Examination Allergies: Coded Allergies: No Known Drug Allergies (Unverified , 12/28/18) Vitals & I&Os Vital Sign - Last 12Hours Date Time Temp Pulse Resp B/P (MAP) Pulse Ox O2 Delivery O2 Flow Rate FiO2 12/30/18 13:09 92 1.00 12/30/18 11:36 98.1 12/30/18 08:02 Nasal Cannula 12/30/18 08:00 75 22 111/65 (80) 12/30/18 03:22 90 Intake and Output 12/30/18 00:00 Intake Total 1230 ml Balance 1230 ml General Appearance: Alert, No Acute Distress Respiratory: Clear to Auscultation, Normal Air Movement Cardiovascular: Regular Rate, No Murmurs Neuro: Normal Speech Psych/Mental Status: Mental Status NL Hospital Course See final discharge diagnosis. Radiology Reviewed CXR 12/28 IMPRESSION: 1. Interstitial opacities bilaterally with minimal airspace opacity in the right upper lobe. Findings are thought to be due to edema, or possibly infection. 2. A small amount of fluid in the right minor fissure. Discharge Instructions to patient/family Please see electronic discharge instructions given to patient. Discharge Medications Reviewed and agree with Discharge Medication list on patient's Discharge Instruction sheet Clinical Quality Measures DVT/VTE Risk/Contraindication: Risk Factor Score Per Nursin RFS Level Per Nursing on Admit: 4+=Very High BLACK VILLALOBOS MD Dec 30, 2018 14:00
[2018-12-30 15:00] VITALS: BP 111/65
--- NOTE | 2018-12-30 15:02 | NUR ---
HALEYQUETA Bolivar demonstrates understanding of discharge instructions and accurately returns instructions upon questioning. Copy of Post-Discharge Instructions and Medication Discharge Instructions given to PT. HALEYQUETA Bolivar is able to manage continuing needs after discharge. Patients belongings returned to PT. Skin dry and intact; no breakdown noted. Patient discharged from [facility] on 12/30/18 at 1503. QUETA DE LEON Osmel left floor via WHEELCHAIR, accompanied by STAFF.
--- NOTE | 2018-12-30 15:08 | NUR ---
Initial visit by Chaplain Mecca Britt: pt is Mandaeism and shared she has friends and family praying for her and providing emotional support. Chaplain Wing offered prayer.
== END 2018-12-30 15:03 | disposition home or self-care (01) | DRG 194 ==
LOC: EDUNIT# 20:18 → ER 20:19 → 4TH 22:20
PROVIDERS: ADMIT Family Medicine; ATTEND Family Medicine
DX: J18.9 Pneumonia, unspecified organism (principal); J44.0 Chronic obstructive pulmonary disease with (acute) lower respiratory infection; J44.1 Chronic obstructive pulmonary disease with (acute) exacerbation; F17.210 Nicotine dependence, cigarettes, uncomplicated
CPT/HCPCS: 36415; 71045; 80053; 81000; 83605; 84484; 85025; 85610; 85730; 87040; 87070; 87077; 87088; 87185; 87205; 93005; 94640; 94760; 94761; 96361; 96374; 96375

== ENCOUNTER 2020-02-05 00:37 | Inpatient (IN) | payer MEDICARE ==
[2020-02-05] VITALS (19 sets, daily range): BP systolic 102–145; BP diastolic 62–96
[~2020-02-05] VITALS: Ht 172 cm; Wt 100.5 kg
[~2020-02-05 00:37] MED LIST changes: +AZIT250T12 PO; +BENZ100C18 PO; +DIPH25CA79 PO; +NAPR-1033 PO; +NAPR-1070 PO; +NICO-588 TD; +PRD10T PO; +RT-ALBUINH INH; -RT-ALBUTEROL SULF 2.5 MG/3 ML PRE-MIX VIAL ONE; -RT-ALBUTEROL/IPRATROPIUM 3 ML (DUONEB) VIAL ONE; +TIOT4MIS2 IH
--- OUTSIDE RECORDS SUMMARY | 2020-02-05 00:43 | XMS REPORT | Continuity of Care Document ---
Author Organization Unknown Address Unknown Phone Unavailable Allergies Active Description Code Type Severity Reaction Onset Reported/Identified Relationship to Patient Clinical Status Yes No Known Drug Allergies [id number] Drug Allergy Unknown N/A 12/28/2018 Medications There is no data. Problems Date Dx Coded Attending Type Code Diagnosis Diagnosed By 12/30/2018 BLACK VILLALOBOS MD, Ot F17.210 NICOTINE DEPENDENCE, CIGARETTES, UNCOMPL 12/30/2018 BLACK VILLALOBOS MD, Ot J18 .9 PNEUMONIA, UNSPECIFIED ORGANISM 12/30/2018 BLACK VILLALOBOS MD, Ot J44 .0 CHRONIC OBSTRUCTIVE PULMON DISEASE W ACU 12/30/2018 BLACK VILLALOBOS MD, Ot J44 .1 CHRONIC OBSTRUCTIVE PULMONARY DISEASE W Procedures There is no data. Results Test Result Range Complete blood count (CBC) with automate d white blood cell (WBC) differential - 12/28/18 20:26 Blood leukocytes automated count (number/volume) 12.2 10*3/uL 4.3-11.0 Blood erythrocytes automated count (number/volume) 4.33 10*6/uL 4.35-5.85 Venous blood hemoglobin measurement (mass/volume) 13.3 g/dL 11.5-16.0 Blood hematocrit (volume fraction) 40 % 35-52 Automated erythrocyte mean corpuscular volume 92 [ foz_us] 80-99 Automated erythrocyte mean corpuscular h emoglobin (mass per erythrocyte) 31 pg 25-34 Automated erythrocyte mean corpuscular h emoglobin concentration measurement (mass/volume) 33 g/dL 32-36 Automated erythrocyte distribution width ratio 13. 8 % 10.0- 14.5 Automated blood platelet count (count/volume) 121 10*3/uL 130-400 Automated blood platelet mean volume measurement 11.7 [foz_us] 7.4-10.4 Automated blood neutrophils/100 leukocytes 61 % 42-75 Automated blood lymphocytes/100 leukocytes 28 % 12-44 Blood monocytes/100 leukocytes 11 % 0-12 Automated blood eosinophils/100 leukocytes 0 % 0-10 Automated blood basophils/100 leukocytes 0 % 0-10 Blood neutrophils automated count (number/volume) 7.5 10*3 1.8-7.8 Blood lymphocytes automated count (number/volume) 3.4 10*3 1.0-4.0 Blood monocytes automated count (number/volume) 1. 3 10*3 0.0-1.0 Automated eosinophil count 0.1 10*3/uL 0 .0-0.3 Automated blood basophil count (count/volume) 0.0 10*3/uL 0.0-0.1 Blood lactic acid measurement (moles/vol ume) - 12/28/18 20:26 Blood lactic acid measurement (moles/volume) 1.34 mmol/L 0.50-2.00 PT panel in platelet poor plasma by coag ulation assay - 12/28/18 20:26 Prothrombin time (PT) in platelet poor plasma by coagu lation assay 14.1 s 12.2-14.7 INR in platelet poor plasma or blood by coagulation as say 1.1 0.8-1.4 Activated partial thromboplastin time (a PTT) in platelet poor plasma bycoagulation assay - 12/28/18 20:26 Activated partial thromboplastin time (a PTT) in platelet poor plasma bycoagulation assay 36 s 24-35 Comprehensive metabolic panel - 12/28/18 20:26 Serum or plasma sodium measurement (moles/volume) 136 mmol/L 135-145 Serum or plasma potassium measurement (moles/volume) 3.8 mmol/L 3.6-5.0 Serum or plasma chloride measurement (moles/volume) 102 mmol/L 98-107 Carbon dioxide 23 mmol/L 21-32 Serum or plasma anion gap determination (moles/volume) 11 mmol/L 5-14 Serum or plasma urea nitrogen measurement (mass/volume ) 10 mg/dL 7-18 Serum or plasma creatinine measurement (mass/volume) 0.73 mg/dL 0.60-1.30 Serum or plasma urea nitrogen/creatinine mass ratio 14 NRG Serum or plasma creatinine measurement w ith calculation of estimated glomerular filtration rate > NRG Serum or plasma glucose measurement (mass/volume) 107 mg/dL 70-105 Serum or plasma calcium measurement (mass/volume) 8.4 mg/dL 8.5-10.1 Serum or plasma total bilirubin measurement (mass/volu me) 1.3 mg/dL 0.1-1.0 Serum or plasma alkaline phosphatase ilene surement (enzymatic activity/volume) 116 U/L 40-136 Serum or plasma aspartate aminotransfera se measurement (enzymatic activity/volume) 52 U/L 5-34 Serum or plasma alanine aminotransferase measurement (enzymatic activity/volume) 42 U/L 0-55 Serum or plasma protein measurement (mass/volume) 6.3 g/dL 6.4-8.2 Serum or plasma albumin measurement (mass/volume) 3.7 g/dL 3.2-4.5 CALCIUM CORRECTED 8.6 mg/dL 8.5-10.1 Serum or plasma troponin i.cardiac measu rement (mass/volume) - 12/28/18 20:26 Serum or plasma troponin i.cardiac measurement (mass/v olume) < ng/mL <0.028 Bacterial blood culture - 12/28/18 20:26 Bacterial blood culture NG NRG Bacterial blood culture - 12/28/18 20:49 Bacterial blood culture NG NRG Sputum Gram stain - 12/28/18 21:00 Sputum Gram stain Many Gram negative bacilli NRG Bacterial sputum culture - 12/28/18 21:0 0 FREE TEXT EXTERNAL BETA LACTAMASE NEGATIVE NRG QUANTITY OF GROWTH . NRG Bacterial sputum culture [id number] NR Complete urinalysis with reflex to cultu re - 12/29/18 00:00 Urine color determination BRENDA NRG Urine clarity determination CLEAR NR G Urine pH measurement by test strip 5 5-9 Specific gravity of urine by test strip 1.025 1.016-1.022 Urine protein assay by test strip, semi-quantitative 1+ NEGATIVE Urine glucose detection by automated test strip NE GATIVE NEGATIVE Erythrocytes detection in urine sediment by light micr oscopy NEGATIVE NEGATIVE Urine ketones detection by automated test strip 2+ NEGATIVE Urine nitrite detection by test strip NEGATIVE NEGATIVE Urine total bilirubin detection by test strip 2+ NEGATIVE Urine urobilinogen measurement by automated test strip (mass/volume) 12 mg/dL NORMAL Urine leukocyte esterase detection by dipstick 1+ NEGATIVE Automated urine sediment erythrocyte cou nt by microscopy (number/high power field) NONE NRG Automated urine sediment leukocyte count by microscopy (number/high power field) [HPF] NRG Bacteria detection in urine sediment by light microsco py MODERATE NRG Squamous epithelial cells detection in u rine sediment by light microscopy 2-5 NRG Crystals detection in urine sediment by light microsco py NONE NRG Casts detection in urine sediment by light microscopy NONE NRG Mucus detection in urine sediment by light microscopy LARGE NRG Complete urinalysis with reflex to culture CULTURE PENDING NRG Bacterial urine culture - 12/29/18 00:00 Bacterial urine culture NG NRG Complete blood count (CBC) with automate d white blood cell (WBC) differential - 12/29/18 05:30 Blood leukocytes automated count (number/volume) 7.8 10*3/uL 4.3-11.0 Blood erythrocytes automated count (number/volume) 4.26 10*6/uL 4.35-5.85 Venous blood hemoglobin measurement (mass/volume) 13.2 g/dL 11.5-16.0 Blood hematocrit (volume fraction) 40 % 35-52 Automated erythrocyte mean corpuscular volume 94 [ foz_us] 80-99 Automated erythrocyte mean corpuscular h emoglobin (mass per erythrocyte) 31 pg 25-34 Automated erythrocyte mean corpuscular h emoglobin concentration measurement (mass/volume) 33 g/dL 32-36 Automated erythrocyte distribution width ratio 13. 9 % 10.0- 14.5 Automated blood platelet count (count/volume) 96 1 0*3/uL 130-400 Automated blood platelet mean volume measurement 12.0 [foz_us] 7.4-10.4 Automated blood neutrophils/100 leukocytes 73 % 42-75 Automated blood lymphocytes/100 leukocytes 23 % 12-44 Blood monocytes/100 leukocytes 4 % 0-12 Automated blood eosinophils/100 leukocytes 0 % 0-10 Automated blood basophils/100 leukocytes 0 % 0-10 Blood neutrophils automated count (number/volume) 5.6 10*3 1.8-7.8 Blood lymphocytes automated count (number/volume) 1.8 10*3 1.0-4.0 Blood monocytes automated count (number/volume) 0. 3 10*3 0.0-1.0 Automated eosinophil count 0.0 10*3/uL 0 .0-0.3 Automated blood basophil count (count/volume) 0.0 10*3/uL 0.0-0.1 Comprehensive metabolic panel - 12/29/18 05:30 Serum or plasma sodium measurement (moles/volume) 141 mmol/L 135-145 Serum or plasma potassium measurement (moles/volume) 4.1 mmol/L 3.6-5.0 Serum or plasma chloride measurement (moles/volume) 105 mmol/L 98-107 Carbon dioxide 26 mmol/L 21-32 Serum or plasma anion gap determination (moles/volume) 10 mmol/L 5-14 Serum or plasma urea nitrogen measurement (mass/volume ) 9 mg/dL 7-18 Serum or plasma creatinine measurement (mass/volume) 0.77 mg/dL 0.60-1.30 Serum or plasma urea nitrogen/creatinine mass ratio 12 NRG Serum or plasma creatinine measurement w ith calculation of estimated glomerular filtration rate > NRG Serum or plasma glucose measurement (mass/volume) 188 mg/dL 70-105 Serum or plasma calcium measurement (mass/volume) 8.4 mg/dL 8.5-10.1 Serum or plasma total bilirubin measurement (mass/volu me) 0.9 mg/dL 0.1-1.0 Serum or plasma alkaline phosphatase ilene surement (enzymatic activity/volume) 103 U/L 40-136 Serum or plasma aspartate aminotransfera se measurement (enzymatic activity/volume) 39 U/L 5-34 Serum or plasma alanine aminotransferase measurement (enzymatic activity/volume) 38 U/L 0-55 Serum or plasma protein measurement (mass/volume) 6.3 g/dL 6.4-8.2 Serum or plasma albumin measurement (mass/volume) 3.4 g/dL 3.2-4.5 CALCIUM CORRECTED 8.9 mg/dL 8.5-10.1 Encounters ACCT No. Visit Date/Time Discharge Status Pt. Type Provider Facility Loc./Unit Complaint [id number] 02/24/2019 11:20:00 02/24/2019 23:59: 59 CLS Outpatient [facility] [place] [id number] 12/28/2018 22:20:00 019 15:03:00 DIS Inpatient WILFREDO CORONEL, BLACK Posada [facility]TH COMM[employer] ACQUIRED PNEU MONIA,COPD [id number] 02/05/2020 00:39:[address] Emergency JENI CORONEL, MILEY [place] [facility] ER COPD
[2020-02-05] MEDS ORDERED: RX-ALBUTEROL INHALER 8 GM HFA (VENTOLIN) IH STA (00:51)
[2020-02-05] MEDS ORDERED: methylPREDNISolone 125 MG (Solu-MEDROL) VIAL IVP ONE (01:00)
[2020-02-05 01:09] LABS: ABG BASE EXCESS 1.8 MMOL/L (-2.5-2.5); ABG OXYGEN SATURATION 97 % (94-100); ABG PCO2 48 MMHG (35-45); ABG PH 7.37 (7.37-7.43); ABG PO2 93 MMHG (79-93); ABG TCO2 28.4 MMOL/L (21.0-31.0); BASOPHILS % (AUTO) 0 % (0-10); EOSINOPHILS # (AUTO) 0.5 10^3/uL (0.0-0.3); EOSINOPHILS % (AUTO) 5 % (0-10); HEMATOCRIT 46 % (35-52); LYMPHOCYTES # (AUTO) 4.1 X 10^3 (1.0-4.0); LYMPHOCYTES % (AUTO) 43 % (12-44); MEAN CORPUSCULAR HEMOGLOBIN 30 PG (25-34); MEAN CORPUSCULAR HGB CONC 33 G/DL (32-36); MEAN CORPUSCULAR VOLUME 91 FL (80-99); MEAN PLATELET VOLUME 12.2 FL (7.4-10.4); MONOCYTES # (AUTO) 0.5 X 10^3 (0.0-1.0); MONOCYTES % (AUTO) 5 % (0-12); NEUTROPHILS # (AUTO) 4.5 X 10^3 (1.8-7.8); NEUTROPHILS % (AUTO) 47 % (42-75); PLATELET COUNT 117 10^3/uL (130-400); RED CELL DISTRIBUTION WIDTH 14.7 % (10.0-14.5); WHITE BLOOD COUNT 9.6 10^3/uL (4.3-11.0)
[2020-02-05 01:11] LABS: ALLENS TEST POSITIVE; INSPIRED O2 10 OXY MASK; VENTILATOR NO
[2020-02-05 01:20] LABS: ALBUMIN 3.6 GM/DL (3.2-4.5); CHLORIDE 107 MMOL/L (98-107); POTASSIUM 3.9 MMOL/L (3.6-5.0); SODIUM 141 MMOL/L (135-145)
[2020-02-05 01:21] LABS: CALCIUM 8.6 MG/DL (8.5-10.1)
[2020-02-05 01:22] LABS: FIBRIN DEGRADATION PRODUCTS 3.56 UG/ML (0.00-0.49); GLUCOSE 101 MG/DL (70-105); INR 1.1 (0.8-1.4); PROTHROMBIN TIME PATIENT 14.6 SEC (12.2-14.7)
[2020-02-05 01:23] LABS: TOTAL PROTEIN 6.2 GM/DL (6.4-8.2)
[2020-02-05 01:24] LABS: BILIRUBIN,TOTAL 0.5 MG/DL (0.1-1.0); CARBON DIOXIDE 22 MMOL/L (21-32)
[2020-02-05 01:26] LABS: ALKALINE PHOSPHATASE 93 U/L (40-136); CREATININE SERUM 0.75 MG/DL (0.60-1.30); GFR ESTIMATED > 60
[2020-02-05 01:27] LABS: BUN/CREATININE RATIO 8
[2020-02-05 01:29] LABS: ALANINE AMINOTRANSFERASE 32 U/L (0-55)
[2020-02-05] MEDS ORDERED: IOHEXOL 350 MG/ML 100 ML (OMNIPAQUE 350) VIAL IV ONE (02:45)
[2020-02-05] MEDS ORDERED: HOLD METFORMIN - RECEIVED CONTRAST 20 ML VIAL IV SCH (02:45)
[2020-02-05] MEDS ORDERED: NS 100 ML (IVPB) BAG IV ONE (02:45)
[2020-02-05] MEDS ORDERED: ENOXAPARIN 100 MG/1 ML (LOVENOX) SYR SC ONE (03:15)
--- NOTE | 2020-02-05 03:22 | ED Respiratory ---
General Chief Complaint: Respiratory Problems Stated Complaint: COPD Nursing Triage Note: patient states COPD hx of, states trouble breathing while at rest Source: patient Exam Limitations: no limitations History of Present Illness Date Seen by Provider: Feb 05, 2020 Time Seen by Provider: 00:39 Initial Comments This 65-year-old woman presents to the emergency room in respiratory distress. Oxygen saturation is 85 percent on room air. She is wheezing and quite diminished. She uses an inhaler at home but has not used one this morning. Has had difficulty breathing over the past week. However, she felt much better today and therefore began smoking more again. The more severe difficulty b reathing started after that. She has had increased cough but denies fever. She reports prior history of pneumonia. She has no known COVID contacts. Allergies and Home Medications Allergies Coded Allergies: No Known Drug Allergies (Unverified , 12/28/18) Home Medications Albuterol Sulfate 6.7 Gm Hfa.aer.ad, 2 PUFF INH Q6H Prescribed by: BLACK VILLALOBOS on 12/30/18 135 Azithromycin 250 Mg Tablet, 250 MG PO DAILY Prescribed by: BLACK VILLALOBOS on 12/30/18 135 Benzonatate 100 Mg Capsule, 100 MG PO TID Prescribed by: BLACK VILLALOBOS on 12/30/18 135 Diphenhydramine HCl 25 Mg Capsule, 25 MG PO DAILY PRN for ALLERGIES, (Reported) Naproxen Sodium 220 Mg Tablet, 440 MG PO Q8H PRN for PAIN-MILD, (Reported) Nicotine 1 Each Patch.td24, 21 MG TD DAILY@0900 Prescribed by: BLACK VILLALOBOS on 12/30/18 135 Prednisone 10 Mg Tab, 0 PO UD Take 6 tabs (60mg) daily, decrease by 1 tab (10mg) daily. Prescribed by: BLACK VILLALOBOS on 12/30/18 135 Tiotropium [place] 4 Gm Mist.inhal, 2 PUFF IH DAILY Prescribed by: BLACK VILLALOBOS on 12/30/18 135 Patient Home Medication List Home Medication List Reviewed: Yes Review of Systems Review of Systems Constitutional: no symptoms reported EENTM: no symptoms reported Respiratory: see HPI Cardiovascular: no symptoms reported Gastrointestinal: no symptoms reported Genitourinary: no symptoms reported : No Musculoskeletal: no symptoms reported Skin: no symptoms reported Psychiatric/Neurological: No Symptoms Reported Hematologic/Lymphatic: No Symptoms Reported Past Rysnnvc-Pddhpy-Pyitrx Hx Past Med/Social Hx: Reviewed Nursing Past Med/Soc Hx Patient Social History Alcohol Use: Occasionally Uses Number of Drinks Today: GG Alcohol Beverage of Choice: Whiskey Recreational Drug Use: No Smoking Status: Current Everyday Smoker Type Used: Cigarettes 2nd Hand Smoke Exposure: Yes Recent Foreign Travel: No Contact w/Someone Who Travel: No Recent Infectious Disease Expo: No Recent Hopitalizations: No Physical Abuse: No Sexual Abuse: No Mistreated: No Fear: No Seasonal Allergies Seasonal Allergies: No Past Medical History Surgeries: Yes (cataract surgery) Ear Surgery Respiratory: Yes Pneumonia, Chronic Bronchitis, COPD Currently Using CPAP: No Currently Using BIPAP: No Cardiac: No Neurological: No : No Genitourinary: No Gastrointestinal: No Musculoskeletal: Yes Chronic Back Pain Endocrine: No HEENT: Yes Cataract, Macular Degeneration Cancer: No Psychosocial: Yes Anxiety Integumentary: No Blood Disorders: No Family Medical History Alzheimer's disease 19 MOTHER Asthma G8 SISTER Cataracts 19 MOTHER G8 SISTER Colitis G8 SISTER Deafness or hearing loss 19 FATHER Dementia G8 SISTER FH: leukemia 19 FATHER FH: lung cancer G8 SISTER Hypertension 19 FATHER 19 MOTHER Physical Exam Vital Signs - First Documented 02/05/20 02/05/20 00:40 00:43 Temp 36.0 Pulse 93 Resp 30 B/P (MAP) 139/107 (118) Pulse Ox 85 O2 Delivery Room Air O2 Flow Rate 10.00 Capillary Refill : Less Than 3 Seconds Height: 5'5.00" Weight: 213lbs. 1.6oz. 96.692286lj; 30.00 BMI Method:Stated General Appearance: WD/WN, moderate distress HEENT: PERRL/EOMI, normal ENT inspection Neck: normal inspection Respiratory: respiratory distress, decreased breath sounds, wheezing Cardiovascular: regular rate, rhythm, no edema, no murmur Gastrointestinal: normal bowel sounds, non tender, soft Extremities: non-tender, normal inspection, no pedal edema Neurologic/Psychiatric: diploma medical assistant II-XII nml as tested, no motor/sensory deficits, alert, normal mood/affect, oriented x 3 Skin: normal color, warm/dry Focused Exam Lactate Level 02/05/20 01:00: Lactic Acid Level 1.96 Lactic Acid Level Laboratory Tests Test 02/05/20 01:00 Lactic Acid Level 1.96 MMOL/L (0.50-2.00) Progress/Results/Core Measures Suspected Sepsis Recent Fever Within 48 Hours: No Infection Criteria Present: Suspected New Infection New/Unexplained Altered Menta: No Sepsis Screen: Possible Severe Sepsis Risk SIRS Temperature: Pulse: 93 Respiratory Rate: 30 Laboratory Tests 02/05/20 01:00: White Blood Count 9.6 Blood Pressure 139 /107 Mean: 118 02/05/20 01:00: Lactic Acid Level 1.96 Laboratory Tests 02/05/20 01:00: Creatinine 0.75, INR Comment 1.1, Platelet Count 117L, Total Bilirubin 0.5 Results/Orders Lab Results Laboratory Tests Test 02/05/20 01:00 02/05/20 01:05 Range/Units White Blood Count 9.6 4.3-11.0 10^3/uL Red Blood Count 5.00 4.35-5.85 10^6/uL Hemoglobin 15.0 11.5-16.0 G/DL Hematocrit 46 35-52 % Mean Corpuscular Volume 91 80-99 FL Mean Corpuscular Hemoglobin 30 25-34 PG Mean Corpuscular Hemoglobin Concent 33 32-36 G/DL Red Cell Distribution Width 14.7 H 10.0-14.5 % Platelet Count 117 L 130-400 10^3/uL Mean Platelet Volume 12.2 H 7.4-10.4 FL Neutrophils (%) (Auto) 47 42-75 % Lymphocytes (%) (Auto) 43 12-44 % Monocytes (%) (Auto) 5 0-12 % Eosinophils (%) (Auto) 5 0-10 % Basophils (%) (Auto) 0 0-10 % Neutrophils # (Auto) 4.5 1.8-7.8 X 10^3 Lymphocytes # (Auto) 4.1 H 1.0-4.0 X 10^3 Monocytes # (Auto) 0.5 0.0-1.0 X 10^3 Eosinophils # (Auto) 0.5 H 0.0-0.3 10^3/uL Basophils # (Auto) 0.0 0.0-0.1 10^3/uL Prothrombin Time 14.6 12.2-14.7 SEC INR Comment 1.1 0.8-1.4 Activated Partial Thromboplast Time 31 24-35 SEC D-Dimer 3.56 H 0.00-0.49 UG/ML Blood Gas Puncture Site RIGHT RADIAL Blood Gas Patient Temperature 36.0 Arterial Blood pH 7.37 7.37-7.43 Arterial Blood Partial Pressure CO2 48 H 35-45 MMHG Arterial Blood Partial Pressure O2 93 79-93 MMHG Arterial Blood HCO3 27 23-27 MMOL/L Arterial Blood Total CO2 28.4 21.0-31.0 MMOL/L Arterial Blood Oxygen Saturation 97 94-100 % Arterial Blood Base Excess 1.8 -2.5-2.5 MMOL/L Zana Test POSITIVE Blood Gas Ventilator Setting NO Blood Gas Inspired Oxygen 10 OXY MASK Sodium Level 141 135-145 MMOL/L Potassium Level 3.9 3.6-5.0 MMOL/L Chloride Level 107 98-107 MMOL/L Carbon Dioxide Level 22 21-32 MMOL/L Anion Gap 12 5-14 MMOL/L Blood Urea Nitrogen 6 L 7-18 MG/DL Creatinine 0.75 0.60-1.30 MG/DL Estimat Glomerular Filtration Rate > 60 BUN/Creatinine Ratio 8 Glucose Level 101 70-105 MG/DL Lactic Acid Level 1.96 0.50-2.00 MMOL/L Calcium Level 8.6 8.5-10.1 MG/DL Corrected Calcium 8.9 8.5-10.1 MG/DL Total Bilirubin 0.5 0.1-1.0 MG/DL Aspartate Amino Transf (AST/SGOT) 48 H 5-34 U/L Alanine Aminotransferase (ALT/SGPT) 32 0-55 U/L Alkaline Phosphatase 93 40-136 U/L Lactate Dehydrogenase 252 H 125-220 U/L C-Reactive Protein High Sensitivity 2.46 H 0.00-0.50 MG/DL B-Type Natriuretic Peptide 26.3 <100.0 PG/ML Total Protein 6.2 L 6.4-8.2 GM/DL Albumin 3.6 3.2-4.5 GM/DL Procalcitonin 0.13 H <0.10 NG/ML My Orders Orders - MILEY NGO MD Rx-Albuterol Inhaler (Rx-Ventolin Hfa In (02/05/20 00:51) Arterial Blood Gas (02/05/20 00:52) Hs C Reactive Protein (02/05/20 00:52) Cbc With Automated Diff (02/05/20 00:52) Comprehensive Metabolic Panel (02/05/20 00:52) Blood Culture (02/05/20 00:52) Sputum Culture (02/05/20 00:52) Urinalysis (02/05/20 00:52) Urine Culture (02/05/20 00:52) Protime With Inr (02/05/20 00:52) Partial Thromboplastin Time (02/05/20 00:52) Chest 1 View, Ap/Pa Only (02/05/20 00:52) Ed Iv/Invasive Line Start (02/05/20 00:52) Ed Iv/Invasive Line Start (02/05/20 00:52) Vital Signs Adult Sepsis Patie Q15M (02/05/20 00:52) O2 (02/05/20 00:52) Remove Rings In Anticipation O (02/05/20 00:52) Lactic Acid Analyzer (02/05/20 00:52) Methylprednisolone Sod Succ (Solu-Medrol (02/05/20 01:00) Fibrin Degradation Products (02/05/20 00:53) Procalcitonin (Pct) (02/05/20 00:53) LDH (02/05/20 00:53) Coronavirus Sars-Cov-2 So 2018 (02/05/20 00:53) BNP (02/05/20 01:14) Ct Angio Chest W (02/05/20 01:46) Iohexol Injection (Omnipaque 350 Mg/Ml 1 (02/05/20 02:45) Received Contrast (Hold Metformin- Contr (02/05/20 02:45) Ns (Ivpb) (Sodium Chloride 0.9% Ivpb Bag (02/05/20 02:45) Enoxaparin Injection (Lovenox Injection) (02/05/20 03:15) Medications Given in ED Current Medications Medications Dose Ordered Sig/Brian Route Start Time Stop Time Status Last Admin Dose Admin Enoxaparin Sodium 90 mg ONCE ONCE SC 02/05/20 03:15 02/05/20 03:16 DC 02/05/20 04:09 90 MG Iohexol 100 ml ONCE ONCE IV 02/05/20 02:45 02/05/20 02:46 DC 02/05/20 02:57 100 ML Methylprednisolone Sodium Succinate 125 mg ONCE ONCE IVP 02/05/20 01:00 02/05/20 01:01 DC 02/05/20 01:07 125 MG Sodium Chloride 100 ml ONCE ONCE IV 02/05/20 02:45 02/05/20 02:46 DC 02/05/20 02:57 80 ML Vital Signs/I&O 02/05/20 02/05/20 02/05/20 00:40 00:43 02:45 Temp 36.0 Pulse 93 Resp 30 B/P (MAP) 139/107 (118) Pulse Ox 85 96 96 O2 Delivery Room Air OxyMask OxyMask O2 Flow Rate 10.00 6.00 Capillary Refill : Less Than 3 Seconds Blood Pressure Mean: 118 Progress Note : Progress Note Patient was immediately placed on oxygen. Saturations improved to the 90s on Oxymizer mask. An albuterol inhaler was used to treat wheezing which was effective. Chest x-ray showed a very large right pleural effusion. D-dimer was elevated and CT angiogram was obtained. Structural abnormalities due to the effusion obscured the imaging. PE cannot be ruled out. Case was discussed with Dr. Mack who agreed to consultation for possible thoracentesis. He is agreeable to use of Lovenox. Case was also discussed with Dr. Jolley prior to admission. Solu-Medrol was given for the COPD exacerbation as well. Departure Communication (Admissions) Time/Spoke to Admitting Phy: 03:10 Dr. Jolley Time/Spoke to Consulting Phy: 03:05 Dr. Mack Impression Primary Impression: Respiratory failure Qualified Codes: J96.01 - Acute respiratory failure with hypoxia Additional Impressions: Pleural effusion, right COPD with exacerbation Elevated d-dimer Disposition: ADMITTED INPATIENT Condition: Improved Admissions Decision to Admit Reason: Admit from ER (General) Decision to Admit/Date: Feb 05, 2020 Time/Decision to Admit Time: 00:45 Departure-Patient Inst. Referrals: MARILEE DOOLEY MD (PCP/Family) Primary Care Physician MILEY GNO MD Feb 05, 2020 03:22
--- OUTSIDE RECORDS SUMMARY | 2020-02-05 03:51 | XMS REPORT | Continuity of Care Document ---
Author Organization Unknown Address Unknown Phone Unavailable Allergies Active Description Code Type Severity Reaction Onset Reported/Identified Relationship to Patient Clinical Status Yes No Known Drug Allergies [id number] Drug Allergy Unknown N/A 12/28/2018 Medications There [...] OF GROWTH . NRG Bacterial sputum culture [id number] NR Complete urinalysis with reflex to cultu [...] g/dL 3.2-4.5 CALCIUM CORRECTED 8.9 mg/dL 8.5-10.1 Arterial blood gas measurement - 0 01:00 Blood pCO2 48 mm[Hg] 35-45 Blood pO2 93 mm[Hg] 79-93 Arterial blood bicarbonate measurement (moles/volume) 27 mmol/L 23-27 Arterial blood base excess by calculation 1.8 mmol /L -2.5-2.5 Arterial blood oxygen saturation measurement 97 % 94-100 * Inhaled oxygen flow rate 10 OXY MASK NRG Arterial blood pH measurement with patient temperature correction 7.37 7.37-7.43 Arterial blood carbon dioxide, total measurement (mole s/volume) 28.4 mmol/L 21.0-31.0 Body site RIGHT RADIAL NRG Assessment of wrist artery patency prior to arterial p uncture POSITIVE NRG Setting of ventilation mode NO NR G Measurement of body temperature 36.0 NRG Complete blood count (CBC) with automate d white blood cell (WBC) differential - 02/05/20 01:00 Blood leukocytes automated count (number/volume) 9.6 10*3/uL 4.3-11.0 Blood erythrocytes automated count (number/volume) 5.00 10*6/uL 4.35-5.85 Venous blood hemoglobin measurement (mass/volume) 15.0 g/dL 11.5-16.0 Blood hematocrit (volume fraction) 46 % 35-52 Automated erythrocyte mean corpuscular volume 91 [ foz_us] 80-99 Automated erythrocyte mean corpuscular h emoglobin (mass per erythrocyte) 30 pg 25-34 Automated erythrocyte mean corpuscular h emoglobin concentration measurement (mass/volume) 33 g/dL 32-36 Automated erythrocyte distribution width ratio 14. 7 % 10.0- 14.5 Automated blood platelet count (count/volume) 117 10*3/uL 130-400 Automated blood platelet mean volume measurement 12.2 [foz_us] 7.4-10.4 Automated blood neutrophils/100 leukocytes 47 % 42-75 Automated blood lymphocytes/100 leukocytes 43 % 12-44 Blood monocytes/100 leukocytes 5 % 0-12 Automated blood eosinophils/100 leukocytes 5 % 0-10 Automated blood basophils/100 leukocytes 0 % 0-10 Blood neutrophils automated count (number/volume) 4.5 10*3 1.8-7.8 Blood lymphocytes automated count (number/volume) 4.1 10*3 1.0-4.0 Blood monocytes automated count (number/volume) 0. 5 10*3 0.0-1.0 Automated eosinophil count 0.5 10*3/uL 0 .0-0.3 Automated blood basophil count (count/volume) 0.0 10*3/uL 0.0-0.1 Comprehensive metabolic panel - 02/05/20 01:00 Serum or plasma sodium measurement (moles/volume) 141 mmol/L 135-145 Serum or plasma potassium measurement (moles/volume) 3.9 mmol/L 3.6-5.0 Serum or plasma chloride measurement (moles/volume) 107 mmol/L 98-107 Carbon dioxide 22 mmol/L 21-32 Serum or plasma anion gap determination (moles/volume) 12 mmol/L 5-14 Serum or plasma urea nitrogen measurement (mass/volume ) 6 mg/dL 7-18 Serum or plasma creatinine measurement (mass/volume) 0.75 mg/dL 0.60-1.30 Serum or plasma urea nitrogen/creatinine mass ratio 8 NRG Serum or plasma creatinine measurement w ith calculation of estimated glomerular filtration rate > NRG Serum or plasma glucose measurement (mass/volume) 101 mg/dL 70-105 Serum or plasma calcium measurement (mass/volume) 8.6 mg/dL 8.5-10.1 Serum or plasma total bilirubin measurement (mass/volu me) 0.5 mg/dL 0.1-1.0 Serum or plasma alkaline phosphatase ilene surement (enzymatic activity/volume) 93 U/L 40-136 Serum or plasma aspartate aminotransfera se measurement (enzymatic activity/volume) 48 U/L 5-34 Serum or plasma alanine aminotransferase measurement (enzymatic activity/volume) 32 U/L 0-55 Serum or plasma protein measurement (mass/volume) 6.2 g/dL 6.4-8.2 Serum or plasma albumin measurement (mass/volume) 3.6 g/dL 3.2-4.5 CALCIUM CORRECTED 8.9 mg/dL 8.5-10.1 Serum ragweed IgE antibody assay - 02/04 01:00 Serum ragweed IgE antibody assay 252 U/L 125-220 PROCALCITONIN (PCT) - 02/05/20 01:00 PROCALCITONIN (PCT) 0.13 ng/mL <0.10 PT panel in platelet poor plasma by coag ulation assay - 02/05/20 01:00 Prothrombin time (PT) in platelet poor plasma by coagu lation assay 14.6 s 12.2-14.7 INR in platelet poor plasma or blood by coagulation as say 1.1 0.8-1.4 Activated partial thromboplastin time (a PTT) in platelet poor plasma bycoagulation assay - 02/05/20 01:00 Activated partial thromboplastin time (a PTT) in platelet poor plasma bycoagulation assay 31 s 24-35 Fibrin D-dimer FEU measurement in platel et poor plasma (mass/volume) - 02/05/20 01:00 Fibrin D-dimer FEU measurement in platelet poor plasma (mass/volume) 3.56 ug/mL 0.00-0.49 Blood lactic acid measurement (moles/vol ume) - 02/05/20 01:00 Blood lactic acid measurement (moles/volume) 1.96 mmol/L 0.50-2.00 Serum or plasma lithium measurement (mol es/volume) - 02/05/20 01:00 BNP PT 26.3 pg/mL <100.0 Serum or plasma C reactive protein measu rement (mass/volume) - 02/05/20 01:00 Serum or plasma C reactive protein measurement (mass/v olume) 2.46 mg/dL 0.00-0.50 Encounters ACCT No. Visit Date/Time Discharge Status Pt. Type Provider Facility Loc./Unit Complaint [id number] 02/24/2019 11:20:00 02/24/2019 23:59: 59 CLS Outpatient KORY OAKES [facility] [id number] 12/28/2018 22:20:00 019 15:03:00 DIS Inpatient WILFREDO CORONEL, BLACK [facility] 4TH COMMUNITY ACQUIRED PNEU MONIA,COPD [id number] 02/05/2020 03:15:[address] Inpatient MERLE EDWARD DO [facility] ICU RESP FAILURE,PLEURALEFFUSION ,COPD EXAC
[2020-02-05] MEDS: POTASSIUM CL 10MEQ/50ML IVPB 50 ML IV SCH (05:18)
[2020-02-05] MEDS: KCL 20 MEQ TAB (K-DUR) PO SCH (05:18)
[2020-02-05] MEDS: MAGNESIUM 1 GM/100 ML IVPB 100 ML IV SCH (05:18)
--- NOTE | 2020-02-05 07:19 | Diagnostic Imaging Report ---
PROCEDURE: CT angiography of the chest with contrast. TECHNIQUE: Multiple contiguous axial images were obtained through the chest after uneventful bolus administration of intravenous contrast. 3D reconstructed CTA MIP acquisitions were also performed. Auto Exposure Controls were utilized during the CT exam to meet ALARA standards for radiation dose reduction. INDICATION: Shortness of breath and respiratory distress. Evaluate for pulmonary embolism. Comparison made to chest radiograph from earlier in the same day. FINDINGS: There is suboptimal opacification of the pulmonary arteries. There are, however, no findings to suggest a central pulmonary artery filling defect. There is no embolism evident within the main pulmonary arteries or findings of a saddle embolus. Smaller segmental or subsegmental branches are not well delineated. There is a large right-sided pleural effusion. There is near-complete atelectatic collapse of the right lower lobe. There is complete collapse of the right middle lobe. There is posterior consolidation and atelectasis within the right upper lobe. The left lung demonstrates no definable infiltrates. There is no left-sided effusion. There are atherosclerotic calcifications within the aorta without evidence of aneurysm or dissection. Heart size appears appropriate without pericardial collection. There are prominent mediastinal lymph nodes. The liver appears cirrhotic. There is splenomegaly. There are gallstones within the gallbladder. There are no findings of biliary dilatation. No acute or suspicious osseous abnormality is evident. IMPRESSION: 1. Suboptimal opacification of the pulmonary arteries. No findings of central filling defect within the main pulmonary arteries or evidence of saddle embolus. There is nondiagnostic assessment of distal small segmental and subsegmental branches. 2. Large right-sided effusion with associated lobar consolidation and collapse. 3. The left lung appears clear 4. Nonspecific mediastinal adenopathy 5. Cirrhosis with portal hypertension and splenomegaly. 6. Agree with the preliminary [facility] report. Dictated by: Dictated on workstation # [id number]
[2020-02-05] MEDS ORDERED: RT-ALBUTEROL INHALER HFA (VENTOLIN HFA) 18 GM IH PRN (07:30)
[2020-02-05] MEDS: methylPREDNISolone 40 MG/ML (Solu-MEDROL) VIAL IV SCH ×3 (08:34→20:29)
--- NOTE | 2020-02-05 09:05 | Diagnostic Imaging Report ---
EXAMINATION: Chest radiograph, portable AP view. DATE: 02/05/2020 1:21 AM hours. INDICATION: 65-year-old female, respiratory distress. COMPARISON: December 28, 2018. FINDINGS: Stable overall appearance of the cardiomediastinal silhouette. There is no identified pneumothorax. There is near complete opacification of the right hemithorax with some aerated right upper lobe present. The left lung appears grossly clear radiographically. IMPRESSION: 1. Near complete opacification of the right hemithorax which may relate to infiltrate, effusion, and/or atelectasis. There is no mediastinal shift. Dictated by: Dictated on workstation # [id number]
--- NOTE | 2020-02-05 09:56 | History & Physical-Hospitalist ---
History of Present Illness HPI/Chief Complaint CC: AECOPD with large right sided pleural effusion HPI: This is a 65yoWF clinic patient of [facility] who has a h/o COPD but continues to smoke who presented to the ER with increased dyspnea. COVID swab pending. Right pleural effusion was noted which required Dr Mack to perform bedside right thoracentesis and removed 2 liters of fluid and sent for analysis. Cytology also added. Tussionex ordered and other anti-tussives. Source: patient, RN/MD Exam Limitations: no limitations Date Seen 02/05/20 Time Seen by a Provider: 09:00 Attending Physician Sondra Jolley DO PCP Kane Pickett MD Referring Physician Date of Admission Feb 05, 2020 at 03:15 Home Medications & Allergies Home Medications Reviewed patient Home Medication Reconciliation performed by pharmacy medication reconciliations automotive engineering technician and/or nursing. Patients Allergies have been reviewed. Allergies Allergies Coded Allergies No Known Drug Allergies (Unverified12/28/18) Past Ksupzwo-Nytnpf-Kneipi Hx Past Med/Social Hx: Reviewed Nursing Past Med/Soc Hx, Reviewed and Corrections made Patient Social History Marrital Status: single Employed/Student: retired Alcohol Use: Occasionally Uses Number of Drinks Today: GG Alcohol Beverage of Choice: Whiskey Recreational Drug Use: No Smoking Status: Current Everyday Smoker Type Used: Cigarettes 2nd Hand Smoke Exposure: Yes Recent Foreign Travel: No Contact w/other who traveled: No Recent Hopitalizations: No Recent Infectious Disease Expo: No Immunizations Up To Date Date of Pneumonia Vaccine: Dec 05, 2018 Seasonal Allergies Seasonal Allergies: No Past Medical History Surgeries: Ear Surgery Respiratory: COPD, Pneumonia Currently Using CPAP: No Currently Using BIPAP: No Cardiac: Hypertension : No Musculoskeletal: Chronic Back Pain HEENT: Cataract, Macular Degeneration Psychosocial: Anxiety History of Blood Disorders: No Family History Alzheimer's disease 19 MOTHER Asthma G8 SISTER Cataracts 19 MOTHER G8 SISTER Colitis G8 SISTER Deafness or hearing loss 19 FATHER Dementia G8 SISTER FH: leukemia 19 FATHER FH: lung cancer G8 SISTER Hypertension 19 FATHER 19 MOTHER Review of Systems Constitutional: see HPI Respiratory: cough, dyspnea on exertion, short of breath, wheezing Physical Exam Physical Exam Vital Signs Vital Signs - First Documented 02/05/20 02/05/20 00:40 00:43 Temp 36.0 Pulse 93 Resp 30 B/P (MAP) 139/107 (118) Pulse Ox 85 O2 Delivery Room Air O2 Flow Rate 10.00 Capillary Refill : Less Than 3 Seconds Height, Weight, BMI Height: 5'5.00" Weight: 213lbs. 1.6oz. 96.183460oa; 30.00 BMI Method:Stated General Appearance: WD/WN, Anxious, Chronically ill, Mild Distress (coughing continously), Obese Eyes: Right Eye Normal Inspection, Right Eye PERRL HEENT: PERRL/EOMI, Normal ENT Inspection, Pharynx Normal, Moist Mucous Membranes Neck: Full Range of Motion, Normal Inspection, Non Tender Respiratory: Chest Non Tender, No Accessory Muscle Use, No Respiratory Distress , Decreased Breath Sounds Cardiovascular: Regular Rate, Rhythm, No Edema, No Gallop, No JVD, No Murmur, Normal Peripheral Pulses Gastrointestinal: Normal Bowel Sounds, No Organomegaly, No Pulsatile Mass, Non Tender, Soft Back: Normal Inspection, No CVA Tenderness, No Vertebral Tenderness Extremity: Normal Capillary Refill, Normal Inspection, Normal Range of Motion, Non Tender, No Calf Tenderness, No Pedal Edema Neurologic/Psychiatric: Alert, Oriented x3, No Motor/Sensory Deficits, Normal Mood/Affect, director of emergency nursing II-XII Norm as Tested Skin: Normal Color, Warm/Dry Lymphatic: No Adenopathy Results Results/Procedures Labs Laboratory Tests 02/05/20 01:00 Patient resulted labs reviewed. Assessment/Plan Admission Diagnosis Assessment: AECOPD Hypoxia Right sided pleural effusion s/p thoracentesis [address] Mack Smoker Plan: Await pleural fluid analysis Anti-tussives Smoking cessation Admission Status: Inpatient Order (span 2 midnights) Reason for Inpatient Admission: aecopd severe Diagnosis/Problems Diagnosis/Problems (1) COPD with exacerbation Status: Acute (2) Pleural effusion, right Status: Acute (3) Respiratory failure Status: Acute Qualifiers: Chronicity: acute Respiratory failure complication: hypoxia Qualified Codes: J96.01 - Acute respiratory failure with hypoxia (4) Tobacco use Status: Chronic Clinical Quality Measures DVT/VTE Risk/Contraindication: Risk Factor Score Per Nursin RFS Level Per Nursing on Admit: 4+=Very High SONDRA JOLLEY DO Feb 05, 2020 09:56
[2020-02-05] MEDS ORDERED: HYDROCODONE/CHLOR 10MG/5 ML (TUSSIONEX SUSP) 5ML UDC PO ONE (10:00)
[2020-02-05] MEDS ORDERED: ONDANSETRON 4 MG (ZOFRAN) ORAL DISSOLVE TAB PO PRN (10:00)
[2020-02-05] MEDS ORDERED: ALPRAZolam 0.25 MG (XANAX) TAB PO PRN (10:00)
[2020-02-05] MEDS ORDERED: diphenhydrAMINE 25 MG TAB (BENADRYL) PO PRN (10:00)
[2020-02-05] MEDS ORDERED: DOCUSATE SODIUM 100 MG (COLACE) CAP PO PRN (10:00)
[2020-02-05] MEDS ORDERED: ACETAMINOPHEN 500 MG TAB (TYLENOL) PO PRN (10:00)
[2020-02-05] MEDS ORDERED: CALCIUM CARBONATE 500 MG (TUMS) TAB.CHEW PO PRN (10:00)
[2020-02-05] MEDS ORDERED: LOPERAMIDE 2 MG (IMODIUM) TABLET PO PRN (10:00)
[2020-02-05] MEDS ORDERED: ONDANSETRON 4 MG/2 ML (SDV) Z0FRAN IVP PRN (10:00)
[2020-02-05] MEDS: BENZONATATE 100 MG (TESSALON) CAPSULE PO SCH ×3 (10:50→20:29)
[2020-02-05] MEDS ORDERED: LIDOCAINE 1% INJ 20 ML 20 ML VIAL ONE (11:28)
[2020-02-05] MEDS ORDERED: fentaNYL INJECTION 100 MCG/2 ML AMP ONE (11:48)
[2020-02-05] MEDS ORDERED: fentaNYL INJECTION 100 MCG/2 ML AMP IVP PRN (12:00)
--- NOTE | 2020-02-05 12:30 | CONSULTATION REPORT ---
DATE OF SERVICE: 02/05/2020 ATTENDING PRIMARY CARE PHYSICIAN: Dr. Pickett. ADMITTING PHYSICIAN: Dr. Jolley. HISTORY OF PRESENT ILLNESS: The patient is a 65-year-old female, who presented to the Emergency Department with shortness of breath. She does have a history of COPD and a longstanding history of smoking and currently does smoke. She states that she has had worsening difficulty in breathing over the past week. She does not report any fever nor chills as well as no sick contacts. She does have a prior history of pneumonia. A CT scan was performed, which did show a large right pleural effusion as well as liver cirrhosis and portal hypertension. PAST MEDICAL HISTORY: COPD, history of pneumonia, macular degeneration and anxiety. PAST SURGICAL HISTORY: Bilateral cataracts. ALLERGIES: No known drug allergies. MEDICATIONS: 1. Albuterol inhaler two puffs q.6 hours p.r.n. 2. Azithromycin 250 mg daily. 3. Benzonatate 100 mg t.i.d. 4. Nicotine patch 21 mg daily. 5. Prednisone 10 mg daily. 6. Tiotropium bromide 2 puffs daily. SOCIAL HISTORY: Positive for smoke 50 pack years. Positive alcohol. FAMILY HISTORY: Sister, lung cancer. Father, leukemia. REVIEW OF SYSTEMS: This is a well-nourished female, currently in no acute distress. She is experiencing exertional shortness of breath; however, stable with supplemental oxygen. She does have a chronic cough; however, nothing new. No sputum production. No nausea, vomiting, no diarrhea or constipation. No chest pain, palpitations or diaphoresis. No fever, chills, no recent inadvertent weight loss. All other review of systems negative. PHYSICAL EXAMINATION: VITAL SIGNS: Temperature 36.4, blood pressure 113/81, pulse 88, respiration 18 and pulse ox 94% on 5 liters oxygen by mask. CHEST: Decreased breath sounds on the right side. Scattered wheezes and rhonchi on the left side. HEART: Regular, no murmurs. EXTREMITIES: +1/3 bilateral lower extremity edema, negative Homans sign. HEENT: No scleral icterus. NECK: No cervical lymphadenopathy. ABDOMEN: Soft, nontender and nondistended. SKIN: Warm and dry. LABORATORY DATA: WBC 9.6, hemoglobin 15.0, hematocrit 46 and platelets 117. ASSESSMENT AND PLAN: A 65-year-old female with a large right pleural effusion and symptomatic shortness of breath with history of COPD. Likely, etiology of the pleural effusion is related to portal hypertension. However, malignancy cannot be ruled out as well. We will proceed with a thoracentesis and send the fluid off for cytology as well as laboratory evaluation. Job ID: [id number] DocumentID: [id number] Dictated Date: 02/05/2020 11:03:43 Coal Conveyor Operator Date: 02/05/2020 12:30:11 Dictated By: ROGE ENCINAS MD
[2020-02-05 13:00] LABS: GLUCOSE,BODY FLUID 180 MG/DL; LDH,BODY FLUID 233 U/L; TOTAL PROTEIN,BODY FLUID 3.2 G/DL
[2020-02-05 13:11] LABS: BODY FLUID APPEARENCE MOD BLDY; BODY FLUID COLOR RED; BODY FLUID RBC COUNT 42500 /uL; BODY FLUID SOURCE PLEURAL; BODY FLUID WBC TOTAL COUNT 700 /uL
[2020-02-05 13:17] LABS: BODY FLUID PH 7.7
[2020-02-05 13:18] LABS: BODY FLUID SPECIFIC GRAVITY 1.015
[2020-02-05 13:24] LABS: BF OTHER CELLS 0 %; LYMPHOCYTES,BODY FLUID 98 %
--- NOTE | 2020-02-05 14:45 | Diagnostic Imaging Report ---
EXAMINATION: Chest 1 view. HISTORY: Thoracentesis. COMPARISON: 02/05/2020. FINDINGS: The right-sided pleural effusion is decreased in size and is now small. Right upper zone airspace opacity is consistent with pneumonia as seen on prior CT. No pneumothorax is seen. Heart size is normal. IMPRESSION: 1. Decrease in size of right pleural effusion which is now small. 2. Persistent right upper zone airspace opacity consistent with pneumonia. Dictated by: Dictated on workstation # [id number]
--- NOTE | 2020-02-05 14:46 | NUR ---
DUE TO CHANGES IN STAFFING CARE OF PT TO THIS RN, REPORT RECEIVED FROM MILADY OCONNOR. PT LYING IN BED SLEEPING AT THIS TIME, CALL LIGHT AND OTHER PERSONAL ITEMS WITHIN REACH WILL CONTINUE TO MONITOR.
--- NOTE | 2020-02-05 17:06 | NUR ---
DR EDWARD NOTIFIED THAT DR ENCINAS IS OK WITH PT RECEIVING LOVENOX. ORDERS RECEIVED TO GIVE LOVENOX 40MG SQ DAILY. ORDERS ENTERED.
--- NOTE | 2020-02-05 19:36 | NUR ---
Daughter, Agnes, contacted this RN with pt password, updated on pt condition. Agnes requesting to speak to Dr if at all possible, this RN will pass along her request.
[2020-02-05] MEDS: ENOXAPARIN 40 MG/0.4 ML (LOVENOX) SYR SC SCH (20:29)
[2020-02-05] MEDS: SENNA W/DOCUSATE (SENOKOT S) TABLET PO SCH (20:29)
[2020-02-05] MEDS ORDERED: HYDROCODONE/CHLOR 10MG/5 ML (TUSSIONEX SUSP) 5ML UDC PO SCH (21:00)
[2020-02-06] VITALS (14 sets, daily range): BP systolic 87–127; BP diastolic 21–82
[2020-02-06] MEDS: methylPREDNISolone 40 MG/ML (Solu-MEDROL) VIAL IV SCH ×4 (00:45→19:54)
--- NOTE | 2020-02-06 02:59 | OPERATIVE REPORT ---
DATE OF SERVICE: 02/05/2020 ATTENDING PRIMARY CARE PHYSICIAN: Dr. Pickett. ADMITTING PHYSICIAN: Dr. Jolley. PREPROCEDURE DIAGNOSIS: Symptomatic large right pleural effusion. POSTPROCEDURE DIAGNOSIS: Symptomatic large right pleural effusion. PROCEDURE: Right thoracentesis. SURGEON: Roge Encinas MD ANESTHESIA: Local. ESTIMATED BLOOD LOSS: Minimal. FINDINGS: 1900 mL of blood-tinged transudative fluid. DISPOSITION: The patient tolerated the procedure well. INDICATIONS: The patient is a 65-year-old female, who presented to the Emergency Department with shortness of breath. She has a significant history of COPD and longstanding history of smoking and also currently does smoke. She reports having worsening difficulty in breathing over the past week. She does not report any fever nor chills as well as no sick contents. She does have a history of pneumonia in the past. A CT scan was performed, which did show a large right pleural effusion as well as liver cirrhosis and portal hypertension. DESCRIPTION OF PROCEDURE: The right back was prepped and draped in standard surgical fashion. A 1% lidocaine was then used to anesthetize the skin and subcutaneous fat as well as muscle layers and parietal pleura. A vertical skin incision was then made using a #11 blade at approximately the eighth intercostal space. The catheter and trocar were then introduced withdrawing of blood-tinged transudative fluid. The catheter was then advanced over the trocar without any resistance and connected to a suction canister were 1900 mL of fluid was evacuated. The catheter was then removed while holding pressure and an occlusive dressing placed. The patient tolerated the procedure well. We will get a post-procedure chest x-ray. We will also send the fluid off for cytology as well as a pH, glucose, LDH as well as AFB and fungal culture. Job ID: [id number] DocumentID: [id number] Dictated Date: 02/05/2020 13:16:44 Feed Crusher Date: 02/05/2020 23:03:29 Dictated By: ROGE ENCINAS MD
[2020-02-06 03:04] LABS: BASOPHILS % (AUTO) 0 % (0-10); EOSINOPHILS % (AUTO) 0 % (0-10); HEMATOCRIT 45 % (35-52); HEMOGLOBIN 14.6 G/DL (11.5-16.0); LYMPHOCYTES # (AUTO) 4.5 X 10^3 (1.0-4.0); LYMPHOCYTES % (AUTO) 26 % (12-44); MEAN CORPUSCULAR HEMOGLOBIN 30 PG (25-34); MEAN CORPUSCULAR HGB CONC 33 G/DL (32-36); MEAN CORPUSCULAR VOLUME 91 FL (80-99); MEAN PLATELET VOLUME 12.6 FL (7.4-10.4); MONOCYTES # (AUTO) 0.4 X 10^3 (0.0-1.0); MONOCYTES % (AUTO) 2 % (0-12); NEUTROPHILS # (AUTO) 12.5 X 10^3 (1.8-7.8); NEUTROPHILS % (AUTO) 72 % (42-75); PLATELET COUNT 116 10^3/uL (130-400); RED CELL DISTRIBUTION WIDTH 14.7 % (10.0-14.5); WHITE BLOOD COUNT 17.4 10^3/uL (4.3-11.0)
[2020-02-06 03:24] LABS: CHLORIDE 105 MMOL/L (98-107); POTASSIUM 4.9 MMOL/L (3.6-5.0); SODIUM 138 MMOL/L (135-145)
[2020-02-06 03:25] LABS: CALCIUM 8.7 MG/DL (8.5-10.1)
[2020-02-06 03:26] LABS: GLUCOSE 152 MG/DL (70-105)
[2020-02-06 03:27] LABS: CARBON DIOXIDE 25 MMOL/L (21-32)
[2020-02-06 03:29] LABS: PHOSPHORUS 3.9 MG/DL (2.3-4.7)
[2020-02-06 03:30] LABS: BUN/CREATININE RATIO 19; CREATININE SERUM 0.81 MG/DL (0.60-1.30); GFR ESTIMATED > 60
[2020-02-06 03:32] LABS: MAGNESIUM 2.4 MG/DL (1.6-2.4)
[2020-02-06 03:55] LABS: ANISOCYTOSIS SLIGHT; LYMPHOCYTES % (MANUAL) 28 %; MONOCYTES % (MANUAL) 3 %; NEUTROPHILS % (MANUAL) 69 %
[2020-02-06] MEDS: MAGNESIUM 1 GM/100 ML IVPB 100 ML IV SCH (05:32)
[2020-02-06] MEDS: POTASSIUM CL 10MEQ/50ML IVPB 50 ML IV SCH (05:32)
[2020-02-06] MEDS: KCL 20 MEQ TAB (K-DUR) PO SCH (05:32)
--- NOTE | 2020-02-06 06:29 | Progress Note - Hospitalist ---
Subjective HPI/CC On Admission Date Seen by Provider: Feb 06, 2020 Time Seen by Provider: 11:30 CC: AECOPD with large right sided pleural effusion HPI: This is a 65yoWF clinic patient of [facility] who has a h/o COPD but continues to smoke who presented to the ER with increased dyspnea. COVID swab pending. Right pleural effusion was noted which required Dr Mack to perform bedside right thoracentesis and removed 2 liters of fluid and sent for analysis. Cytology also added. Tussionex ordered and other anti-tussives. Subjective/Events-last exam Patient doing much better Cough is not as persistent Transferring to the floor 2 L of thoracentesis has helped tremendously No pain is reported Incentive spirometer will be started Review of Systems Pulmonary: Dyspnea, Cough Focused Exam Lactate Level 02/05/20 01:00: Lactic Acid Level 1.96 Objective Exam Vital Signs Vital Signs Date Time Temp Pulse Resp B/P (MAP) Pulse Ox O2 Delivery O2 Flow Rate FiO2 02/06/20 16:00 36.8 82 20 127/75 (92) 97 Nasal Cannula 5.00 Capillary Refill : Less Than 3 Seconds General Appearance: No Apparent Distress, WD/WN, Chronically ill Respiratory: Chest Non Tender, Lungs Clear, Normal Breath Sounds, No Accessory Muscle Use, No Respiratory Distress, Decreased Breath Sounds Cardiovascular: Regular Rate, Rhythm, No Edema, No Gallop, No JVD, No Murmur, Normal Peripheral Pulses Neurologic/Psychiatric: Alert, Oriented x3, No Motor/Sensory Deficits, Normal Mood/Affect Results/Procedures Lab Laboratory Tests 02/06/20 02:51 Patient resulted labs reviewed. Assessment/Plan Assessment and Plan Assess & Plan/Chief Complaint Assessment: AECOPD Hypoxia Right sided pleural effusion s/p thoracentesis [address] Mack Smoker Plan: Await pleural fluid analysis Anti-tussives Smoking cessation 02/06/2020: Incentive spirometer Transfer to fourth floor Maintain current supportive treatment Diagnosis/Problems Diagnosis/Problems (1) COPD with exacerbation Status: Acute (2) Pleural effusion, right Status: Acute (3) Respiratory failure Status: Acute Qualifiers: Chronicity: acute Respiratory failure complication: hypoxia Qualified Codes: J96.01 - Acute respiratory failure with hypoxia (4) Tobacco use Status: Chronic Clinical Quality Measures DVT/VTE Risk/Contraindication: Risk Factor Score Per Nursin RFS Level Per Nursing on Admit: 4+=Very High MERLE EDWARD DO Feb 06, 2020 06:28
[2020-02-06] MEDS: BENZONATATE 100 MG (TESSALON) CAPSULE PO SCH (07:45)
[2020-02-06] MEDS: SENNA W/DOCUSATE (SENOKOT S) TABLET PO SCH ×2 (07:45→19:54)
--- NOTE | 2020-02-06 09:36 | NUR ---
TELE ICU DR COMBS CALLED TO CHECK ON PT, THIS RN INFORMED DR THAT PT NOTED TO BE LETHARGIC AT TIMES ORDERS RECEIVED TO CHANGE TESSALON PERLES AND COUGH MEDICINE TO PRN. ORDERS ENTERED. PT SITTING UP IN CHAIR RESTING WITH EYES CLOSED IN CHAIR. CALL LIGHT AND OTHER PERSONAL ITEMS WITHIN REACH WILL CONTINUE TO MONITOR.
[2020-02-06] MEDS ORDERED: BENZONATATE 100 MG (TESSALON) CAPSULE PO PRN (09:45)
--- NOTE | 2020-02-06 13:55 | NUR ---
ORIENTED TO ROOM. CALL LIGHT WITHIN, O2 ON PER NC AT 5 LITERS, DENIES SOB OR PAIN, SCD'S APPLIED, CONT ON ISOLATION.
--- NOTE | 2020-02-06 14:10 | NUR ---
1350 PT TRANSFERRED TO ROOM 422 VIA W/C AND 02 AT 6 LITER PER NC, REPORT GIVEN TO PRIOR TO TRANSFER TO Connie GALLEGOS RN. ALL PERSONAL ITEMS SENT WITH PT.
[2020-02-06] MEDS: ENOXAPARIN 40 MG/0.4 ML (LOVENOX) SYR SC SCH (19:54)
[2020-02-06] MEDS: MELATONIN 3 MG TABLET PO PRN (19:55)
[2020-02-06] MEDS ORDERED: HYDROCODONE/CHLOR 10MG/5 ML (TUSSIONEX SUSP) 5ML UDC PO PRN (21:00)
[2020-02-07 00:43] VITALS: BP 108/60
[2020-02-07] MEDS: methylPREDNISolone 40 MG/ML (Solu-MEDROL) VIAL IV SCH ×4 (02:32→20:08)
[2020-02-07 04:39] VITALS: BP 119/65
[2020-02-07 05:45] LABS: BASOPHILS % (AUTO) 0 % (0-10); EOSINOPHILS % (AUTO) 0 % (0-10); HEMATOCRIT 43 % (35-52); HEMOGLOBIN 13.7 G/DL (11.5-16.0); LYMPHOCYTES # (AUTO) 4.4 X 10^3 (1.0-4.0); LYMPHOCYTES % (AUTO) 27 % (12-44); MEAN CORPUSCULAR HEMOGLOBIN 29 PG (25-34); MEAN CORPUSCULAR HGB CONC 32 G/DL (32-36); MEAN CORPUSCULAR VOLUME 92 FL (80-99); MONOCYTES # (AUTO) 0.5 X 10^3 (0.0-1.0); MONOCYTES % (AUTO) 3 % (0-12); NEUTROPHILS # (AUTO) 11.7 X 10^3 (1.8-7.8); NEUTROPHILS % (AUTO) 70 % (42-75); PLATELET COUNT 113 10^3/uL (130-400); RED CELL DISTRIBUTION WIDTH 14.4 % (10.0-14.5); WHITE BLOOD COUNT 16.6 10^3/uL (4.3-11.0)
[2020-02-07 05:54] LABS: CHLORIDE 106 MMOL/L (98-107); SODIUM 141 MMOL/L (135-145)
[2020-02-07 05:55] LABS: CALCIUM 8.8 MG/DL (8.5-10.1); GLUCOSE 127 MG/DL (70-105)
[2020-02-07 05:57] LABS: CARBON DIOXIDE 27 MMOL/L (21-32)
[2020-02-07 05:59] LABS: CREATININE SERUM 0.81 MG/DL (0.60-1.30); GFR ESTIMATED > 60
[2020-02-07 06:00] LABS: BUN/CREATININE RATIO 30
[2020-02-07 07:38] VITALS: BP 111/67
[2020-02-07] MEDS: SENNA W/DOCUSATE (SENOKOT S) TABLET PO SCH ×2 (08:19→21:00)
--- NOTE | 2020-02-07 11:26 | NUR ---
I SPOKE WITH THE PATIENT ON THE ROOM PHONE TO COMPLETE THE MED REC. PATIENT INDICATED THAT SHE DOES NOT TAKE ANY MEDICATIONS, ALTHOUGH I DID UPDATE HER PREFERRED PHARMACY.
[2020-02-07 16:13] VITALS: BP 130/84
[2020-02-07] MEDS: ENOXAPARIN 40 MG/0.4 ML (LOVENOX) SYR SC SCH (20:08)
[2020-02-07] MEDS: MELATONIN 3 MG TABLET PO PRN (20:10)
[2020-02-07] MEDS: HYDROcodone/APAP 5 MG/325 MG (LORTAB) TAB PO PRN (20:10)
--- NOTE | 2020-02-07 20:51 | Progress Note ---
Subjective Subjective/Events-last exam Patient states that she is feeling better this AM. Shortness of breath is better. She is up sitting in chair. Tolerating PO diet. Review of Systems General: Malaise Pulmonary: Dyspnea, Cough Cardiovascular: No: Chest Pain, Palpitations, Edema Gastrointestinal: No: Nausea, Vomiting, Abdominal Pain Neurological: Weakness, Incoordination Focused Exam Lactate Level 02/05/20 01:00: Lactic Acid Level 1.96 Objective Exam Last Set of Vital Signs Vital Signs Date Time Temp Pulse Resp B/P (MAP) Pulse Ox O2 Delivery O2 Flow Rate FiO2 02/07/20 20:10 36.7 02/07/20 16:13 85 20 130/84 (99) 97 Nasal Cannula 3.00 Capillary Refill : Less Than 3 Seconds I&O Intake and Output 02/07/20 00:00 Intake Total 1020 ml Output Total 500 ml Balance 520 ml Intake Oral 1020 ml Output Urine Total 500 ml # Voids 5 General: Alert, Oriented X3, Cooperative, No Acute Distress HEENT: Mucous Memb Moist/[place] Lungs: Other (Diminished breath sounds, + wheezing, normal work of breathing) Heart: Regular Rate, No Murmurs Abdomen: Normal Bowel Sounds, Soft, No Tenderness, No Masses Extremities: No Edema, No Tenderness/Swelling Skin: No Rashes Neuro: Strength at 5/5 X4 Ext, Sensation Intact, Cranial Nerves 3-12 NL Results/Procedures Lab Laboratory Tests 02/07/20 05:32: White Blood Count 16.6H, Red Blood Count 4.66, Hemoglobin 13.7, Hematocrit 43, Mean Corpuscular Volume 92, Mean Corpuscular Hemoglobin 29, Mean Corpuscular Hemoglobin Concent 32, Red Cell Distribution Width 14.4, Platelet Count 113L, Mean Platelet Volume 12.0H, Neutrophils (%) (Auto) 70, Lymphocytes (%) (Auto) 27 , Monocytes (%) (Auto) 3, Eosinophils (%) (Auto) 0, Basophils (%) (Auto) 0, Neutrophils # (Auto) 11.7H, Lymphocytes # (Auto) 4.4H, Monocytes # (Auto) 0.5, Eosinophils # (Auto) 0.0, Basophils # (Auto) 0.0, Sodium Level 141, Potassium Level 5.0, Chloride Level 106, Carbon Dioxide Level 27, Anion Gap 8, Blood Urea Nitrogen 24H, Creatinine 0.81, Estimat Glomerular Filtration Rate > 60, BUN/Creatinine Ratio 30, Glucose Level 127H, Calcium Level 8.8 Microbiology 02/05/20 Gram Stain - Final, Resulted 02/05/20 Body Fluid Culture - Preliminary, Resulted No growth 02/05/20 Blood Culture - Preliminary, Resulted No growth Assessment/Plan Assessment/Plan (1) Acute and chronic respiratory failure with hypoxia Status: Acute Assessment & Plan: 02/06: Continue to titrate as tolerated, home oxygen requirement 3-4 L (2) COPD with exacerbation Status: Acute Assessment & Plan: 02/06: Transitioned to PO steroids, MAT protocol (3) Pleural effusion, right Status: Acute Assessment & Plan: 02/06: s/p Thoracentesis 1900 cc removed of transudate, culture NGTD (4) Elevated d-dimer Status: Acute (5) Tobacco abuse Status: Chronic Assessment & Plan: - Discussed cessation (6) DVT prophylaxis Status: Acute Assessment & Plan: - Lovenox Clinical Quality Measures DVT/VTE Risk/Contraindication: Risk Factor Score Per Nursin RFS Level Per Nursing on Admit: 4+=Very High MARTHA BRADLEY MD Feb 07, 2020 20:51
[2020-02-08] VITALS: BP 115/74
[2020-02-08 06:04] LABS: BASOPHILS % (AUTO) 0 % (0-10); EOSINOPHILS % (AUTO) 0 % (0-10); HEMATOCRIT 43 % (35-52); HEMOGLOBIN 13.5 G/DL (11.5-16.0); LYMPHOCYTES # (AUTO) 3.9 X 10^3 (1.0-4.0); LYMPHOCYTES % (AUTO) 30 % (12-44); MEAN CORPUSCULAR HEMOGLOBIN 29 PG (25-34); MEAN CORPUSCULAR HGB CONC 32 G/DL (32-36); MEAN CORPUSCULAR VOLUME 93 FL (80-99); MEAN PLATELET VOLUME 12.5 FL (7.4-10.4); MONOCYTES # (AUTO) 0.5 X 10^3 (0.0-1.0); MONOCYTES % (AUTO) 4 % (0-12); NEUTROPHILS # (AUTO) 8.5 X 10^3 (1.8-7.8); NEUTROPHILS % (AUTO) 66 % (42-75); PLATELET COUNT 105 10^3/uL (130-400); RED CELL DISTRIBUTION WIDTH 14.2 % (10.0-14.5); WHITE BLOOD COUNT 12.8 10^3/uL (4.3-11.0)
[2020-02-08 06:11] LABS: BUN/CREATININE RATIO 32; CALCIUM 8.1 MG/DL (8.5-10.1); CARBON DIOXIDE 28 MMOL/L (21-32); CHLORIDE 105 MMOL/L (98-107); CREATININE SERUM 0.78 MG/DL (0.60-1.30); GFR ESTIMATED > 60; GLUCOSE 122 MG/DL (70-105); POTASSIUM 4.9 MMOL/L (3.6-5.0); SODIUM 141 MMOL/L (135-145)
[2020-02-08] MEDS ORDERED: predniSONE 20 MG TAB PO SCH (07:00)
[2020-02-08 07:40] VITALS: BP 130/78
[2020-02-08] MEDS: HYDROcodone/APAP 5 MG/325 MG (LORTAB) TAB PO PRN (08:28)
[2020-02-08] MEDS: SENNA W/DOCUSATE (SENOKOT S) TABLET PO SCH (09:00)
--- NOTE | 2020-02-08 11:09 | NUR ---
RT NOTIFIED OF HOME EV
--- NOTE | 2020-02-08 11:14 | NUR ---
SPO2 DROPPED TO 88% ON ROOM AIR @ REST. REPLACED O2 @ 3 LPM. SPO2 INCREASED TO 92%. Addendum: 02/08/20 at 1130 by JOSHUA RUDOLPH RT Amended: Links added.
--- NOTE | 2020-02-08 11:39 | Discharge Summary ---
Diagnosis/Chief Complaint Date of Admission Feb 05, 2020 at 03:15 Date of Discharge Discharge Diagnosis Problems/Diagnosis: (1) Acute and chronic respiratory failure with hypoxia Assessment & Plan: 02/06: Continue to titrate as tolerated, home oxygen requirement 3-4 L Status: Acute (2) COPD with exacerbation Assessment & Plan: 02/06: Transitioned to PO steroids, MAT protocol Status: Acute (3) Pleural effusion, right Assessment & Plan: 02/06: s/p Thoracentesis 1900 cc removed of transudate, culture NGTD Status: Acute (4) Elevated d-dimer Status: Acute (5) Tobacco abuse Assessment & Plan: - Discussed cessation Status: Chronic (6) DVT prophylaxis Assessment & Plan: - Lovenox Status: Acute Discharge Summary-Simple/Stand Consultations Discharge Physical Examination Allergies: Coded Allergies: No Known Drug Allergies (Unverified , 12/28/18) Vitals & I&Os Vital Sign - Last 12Hours Date Time Temp Pulse Resp B/P (MAP) Pulse Ox O2 Delivery O2 Flow Rate FiO2 02/08/20 11:14 93 3.00 02/08/20 09:39 Nasal Cannula 02/08/20 07:40 36.6 74 20 130/78 (95) Intake and Output 02/08/20 00:00 Intake Total 1840 ml Balance 1840 ml Hospital Course See final discharge diagnosis. Discharge Instructions to patient/family Please see electronic discharge instructions given to patient. Discharge Medications Reviewed and agree with Discharge Medication list on patient's Discharge Instruction sheet Clinical Quality Measures DVT/VTE Risk/Contraindication: Risk Factor Score Per Nursin RFS Level Per Nursing on Admit: 4+=Very High MARTHA BRADLEY MD Feb 08, 2020 11:39
[2020-02-08] MEDS ORDERED: PRD20T PO (11:41)
[2020-02-08] MEDS ORDERED: ALBU18HF2 IH (11:41)
--- NOTE | 2020-02-08 11:42 | Discharge Summary ---
Discharge [facility] Reconcile Patient Problems Problems Reviewed?: Yes Discharge Medications New, Converted or Re-Newed RX: Transmitted to Pharmacy New Medications: Albuterol Sulfate (Ventolin Hfa) 18 Gm Hfa.aer.ad 0 GM IH Q2H PRN for SHORTNESS OF AIR OR WHEEZING, #1 INHALER Prednisone (Prednisone) 20 Mg Tab 40 MG PO DAILY@0700, #11 TAB 2 tab x3 days 1 tab x 3 days 1/2 tab x 4 days then STOP Patient Instructions Goal/Follow Up Appt: You will be called with an appt at [facility] Activity & Diet Discharge Diet: Cardiac Diet Activity as Tolerated: Yes MARTHA BRADLEY MD Feb 08, 2020 11:41
--- NOTE | 2020-02-08 11:55 | NUR ---
DISCHARGE PLANNING: Patient qualifies for a new home oxygen. She will require 3 L NC continuously. I have spoken to the patient in regard choices of medical equipment providers and she has chosen [facility]. I have sent qualification study, O2 order and H & P to [facility]. They will need to deliver a "go tank" for her to discharge with.
== END 2020-02-08 13:26 | disposition home or self-care (01) | DRG 441 ==
LOC: EDUNIT# 00:37 → ER 00:39 → ICU 03:15 → 4TH 02-06 13:42
PROVIDERS: ADMIT Internal Medicine; ATTEND Family Medicine
PROC: 0W993ZZ Drainage of Right Pleural Cavity, Percutaneous Approach (ICD-10-PCS; principal; 2020-02-05)
DX: K76.6 Portal hypertension (principal); J96.21 Acute and chronic respiratory failure with hypoxia; J91.8 Pleural effusion in other conditions classified elsewhere; J44.1 Chronic obstructive pulmonary disease with (acute) exacerbation; K74.60 Unspecified cirrhosis of liver; F17.210 Nicotine dependence, cigarettes, uncomplicated; F41.9 Anxiety disorder, unspecified; H35.30 Unspecified macular degeneration; M54.9 Dorsalgia, unspecified; Z87.01 Personal history of pneumonia (recurrent); Z20.828 Contact with and (suspected) exposure to other viral communicable diseases
CPT/HCPCS: 36415; 71045; 71275; 80048; 80053; 82805; 82945; 82962; 83605; 83615; 83735; 83880; 83986; 84100; 84145; 84157; 84315; 85007; 85025; 85027; 85379; 85610; 85730; 86141; 87040; 87070; 87205; 87635; 89051; 94664; 94761; 99291

== ENCOUNTER → 2020-02-23 | Outpatient (CLI) | payer MEDICARE ==
[~2020-02-23] MED LIST changes: +ALBU18HF2 IH; +PRD20T PO
--- NOTE | 2020-02-23 22:18 | OPERATIVE REPORT ---
DATE OF SERVICE: 02/23/2020 ATTENDING PRIMARY CARE PHYSICIAN: Kane Pickett. PREOPERATIVE DIAGNOSIS: Recurrent right symptomatic pleural effusion. POSTOPERATIVE DIAGNOSIS: Recurrent right symptomatic pleural effusion. PROCEDURE: Right thoracentesis. SURGEON: Roge Encinas MD ANESTHESIA: Local. ESTIMATED BLOOD LOSS: Minimal. FINDINGS: 2000 mL of straw yellow transudative fluid. DISPOSITION: The patient tolerated the procedure well. INDICATIONS: The patient is a 65-year-old female who initially presented to the Emergency Department on 02/05/2020 with shortness of breath. She has a history of COPD and long-standing history of smoking. She had reported worsening shortness of breath and a CT scan was performed, which did show a large right pleural effusion as well as liver cirrhosis and portal hypertension. She underwent a thoracentesis where significant amount of fluid was withdrawn. She was seen by her physician where she is having recurrent shortness of breath and x-ray was performed, which did show reoccurrence of the right pleural effusion. DESCRIPTION OF PROCEDURE: The patient was marked with ultrasound before the procedure and instructed to sit upright with the back flexed. The back was then prepped and draped in standard surgical fashion. A 1% lidocaine was then used to anesthetize the skin, subcutaneous tissue, muscle layers as well as the parietal pleura. A vertical skin incision was made using 11 blade. Trocar and sheath were then introduced withdrawing of straw yellow transudative fluid. The catheter was then connected to tubing and vacuum container where 2000 mL of straw yellow transudative fluid was evacuated. Once evacuated, the catheter was removed while applying direct pressure and an occlusive dressing placed. The patient tolerated the procedure well. We will get a post-procedure chest x-ray. We will also send the fluid for fluid analysis as well as cytology. Job ID: [id number] DocumentID: [id number] Dictated Date: 02/23/2020 14:47:17 Statement Processor Date: 02/23/2020 22:17:01 Dictated By: ROGE ENCINAS MD
[2020-02-24 10:07] LABS: TOTAL PROTEIN 2.6 GM/DL (6.4-8.2)
--- NOTE | 2020-02-25 08:11 | Diagnostic Imaging Report ---
EXAMINATION: Portable chest on 02/23/2020 at 2:57 PM. INDICATION: Status post thoracentesis. COMPARISON: Correlation is made with prior exam from 02/05/2020. FINDINGS: Heart size is stable. Area of parenchymal density in the right midlung is unchanged. There is reduction in right pleural effusion, status post thoracentesis. No pneumothorax is identified. IMPRESSION: No evidence of pneumothorax, status post thoracentesis. Dictated by: Dictated on workstation # [id number]
--- NOTE | 2020-02-25 08:22 | Diagnostic Imaging Report ---
Selena Latif DB: [id number] EXAMINATION: Ultrasound right chest on 02/22 at 12:49 PM. Sonographic evaluation of the right chest was performed to evaluate for pleural effusion. INDICATION: Pleural Effusion. Marking was provided right chest for Dr. Mack for purpose of thoracentesis. Approximately 1600 mL of fluid is visualized. IMPRESSION: Large right pleural effusion. Dictated by: Dictated on workstation # [id number]
== END ==
LOC: RAD 11:45
PROVIDERS: ATTEND Surgery
DX: J90 Pleural effusion, not elsewhere classified (principal)
CPT/HCPCS: 36415; 71045; 76942; 83615; 84155; 87070; 87101; 87205

== ENCOUNTER → 2020-03-02 | Outpatient (CLI) | payer MEDICARE ==
[~2020-03-02] MED LIST changes: +AMOX-355 PO; +HYDR-3817 PO; +IPRA3AMP31 IH; +LEVO750T9 PO; +PANT40TA2 PO; +POLY17PO6 PO
== END | disposition home or self-care (01) ==
LOC: PREOP 11:49
PROVIDERS: ATTEND Surgery
DX: Z01.818 Encounter for other preprocedural examination (principal)

== ENCOUNTER → 2020-03-03 | Day surgery (SDC) | payer MEDICARE ==
--- NOTE | 2020-03-02 16:05 | HISTORY AND PHYSICAL ---
DATE OF SERVICE: ADMITTING PRIMARY CARE PHYSICIAN: Kane Pickett MD HISTORY OF PRESENT ILLNESS: The patient is a 65-year-old female known to us. She initially presented to the Emergency Department with shortness of breath. She does have a longstanding history of COPD as well as smoking history and does also currently smoke. A CT scan was performed on that admission was found to have a large right pleural effusion as well as a possible liver cirrhosis and portal hypertension. On that admission, she underwent a thoracentesis and was treated for pneumonia and was discharged to home. Approximately 2 weeks later, she did have a recurrent shortness of breath and was found to have a recurrent right pleural effusion and underwent thoracentesis as an outpatient. She then presented to [facility] two days ago with recurrent shortness of breath. She was again found to have a recurrent right pleural effusion and she underwent a thoracentesis and was also treated for pneumonia. The cytology results eventually came back as a malignant pleural effusion and consistent with an adenocarcinoma from a lung primary. PAST MEDICAL HISTORY: COPD, history of pneumonia, macular degeneration, anxiety. PAST SURGICAL HISTORY: Bilateral cataracts. ALLERGIES: No known drug allergies. MEDICATIONS: Albuterol inhaler 2 puffs q.6 hours p.r.n., azithromycin 250 mg daily, benzonatate 100 mg t.i.d., prednisone 10 mg daily, tiotropium bromide 2 puffs daily. SOCIAL HISTORY: Positive for smoke 50 to 60 pack years. Positive alcohol. FAMILY HISTORY: Sister, lung cancer. Father, leukemia. REVIEW OF SYSTEMS: Well-nourished female currently in no acute distress. She is experiencing exertional shortness of breath; however, no new cough or sputum production. No nausea, vomiting. No diarrhea or constipation. No chest pain, palpitations, diaphoresis. No fever, chills, no recent inadvertent weight loss. All other review of systems negative. PHYSICAL EXAMINATION: CHEST: Decreased breath sounds right lung base with scattered wheezes and rhonchi bilaterally. HEART: Regular, no murmurs. EXTREMITIES: No lower extremity edema, negative Homans sign. HEENT: No scleral icterus. NECK: No cervical lymphadenopathy. ABDOMEN: Soft, nontender, nondistended with no palpable masses. SKIN: Warm, dry. ASSESSMENT AND PLAN: A 65-year-old female with a right-sided malignant pleural effusion and consistent with a stage IV adenocarcinoma of the lung. She currently has a referral appointment for oncology. However, due to the fast reoccurrence of her symptomatic right pleural effusion, she will need a tunneled PleurX catheter as well as a Groshong implantable catheter, which we will schedule. Job ID: [id number] DocumentID: [id number] Dictated Date: 03/01/2020 18:15:04 Offshore Wind Operations Manager Date: 03/01/2020 20:37:33 Dictated By: ROGE ENCINAS MD
[~2020-03-03] MED LIST changes: +0.9% SODIUM CHLORIDE PF INJ 20 ML VIAL ONE; +ACETAMINOPHEN 325 MG TABLET PO PRN; +BUP/EPI 0.5% 1:200,000 (MARCAINE) 10ML VIAL IJ ONE; +HEParin (CENTRAL IV FLUSH) 500 UNIT/5 ML SYR ONE; +HYDROcodone/APAP 5 MG/325 MG (LORTAB) TAB PO ONE; +LACTATED RINGERS 1,000 ML IV PRN; +MIDAZOLAM 2 MG/2 ML (VERSED) VIAL ONE; +ONDANSETRON 4 MG/2 ML (SDV) Z0FRAN IVP PRN; +ceFAZolin 2 GM IV Premixed 50 ML IV ONE; +morphine INJ 10 MG/ML 1ML (SYR OR VIAL) IVP PRN; +proPOfol 200 MG/20 ML (DIPRIVAN) VIAL IV ONE
[2020-03-03 08:55] VITALS: BP 129/76
--- NOTE | 2020-03-03 10:25 | Progress Note-Pre Operative ---
Pre-Operative Progress Note H&P Reviewed The H&P was reviewed, patient examined and no changes noted. Date Seen by Provider: Mar 03, 2020 Time Seen by Provider: : Date H&P Reviewed: Mar 03, 2020 Time H&P Reviewed: : Pre-Operative Diagnosis: malignant right pleural effusion ROGE ENCINAS MD Mar 03, 2020 10:25
--- NOTE | 2020-03-03 10:29 | Discharge Inst-Surgical ---
D/C Lap Instructions-HUANG New, Converted, or Re-Newed RX: RX on Chart Follow Up PRN Activity as tolerated No driving for 24 hours No driving while on pain medications Incentive Spirometry use every 2 hours while awake Regular Diet drain 1 liter every other day. may access and use port at any time. Symptoms to Report: Fever over 101 degree F, Nausea/Vomiting Infection Signs and Symptoms to report: Increased redness, Foul odor of wound, Increased drainage Bathing instructions: May shower Operative Area Clean/Dry; Keep incision clean/dry If any problems/questions: Contact your physician or go to Emergency Room ROGE ENCINAS MD Mar 03, 2020 10:29
--- NOTE | 2020-03-03 11:30 | Diagnostic Imaging Report ---
INDICATION: Right-sided pleural effusion. FINDINGS: Sonographic guidance was provided for Dr. Mack for placement of a PleurX catheter in the OR in the right pleural space. A single image demonstrates a large right pleural effusion. IMPRESSION: Guidance for right-sided PleurX catheter placement. Dictated by: Dictated on workstation # [id number]
[2020-03-03 12:00] VITALS: BP 107/93
--- NOTE | 2020-03-03 12:00 | Progress Note-Post Operative ---
Post-Operative Progess Note Surgeon (s)/Promotions Coordinator (s) Surgeon ROGE ENCINAS MD Promotions Coordinator: none Pre-Operative Diagnosis malignant right pleural effusion Post-Operative Diagnosis same Procedure & Operative Findings Date of Procedure 03/03/20 Procedure Performed/Findings placement left subclavian groshong implantable catheter under flouroscopy. right tunneled thoracentesis catheter placement. Anesthesia Type MAC with local Estimated Blood Loss Estimated blood loss (mL): minimal Specimens/Packing Specimens Removed none ROGE ENCINAS MD Mar 03, 2020 12:00
--- NOTE | 2020-03-03 12:05 | Anesthesia-General Post-Op ---
MAC Patient Condition Mental Status/LOC: Same as Preop Cardiovascular: Satisfactory Nausea/Vomiting: Absent Respiratory: Satisfactory Pain: Controlled Complications: Absent Post Op Complications Complications None Follow Up Care/Instructions Patient Instructions None needed. Anesthesiology Discharge Order Discharge Order Patient is doing well, no complaints, stable vital signs, no apparent adverse anesthesia problems. No complications reported per nursing. ROBERT BUSTAMANTE CRNA Mar 03, 2020 12:05
[2020-03-03 12:10] VITALS: BP 103/77
[2020-03-03 12:20] VITALS: BP 100/72
[2020-03-03 12:30] VITALS: BP 119/76
--- NOTE | 2020-03-03 12:39 | Diagnostic Imaging Report ---
INDICATION: Postop Port-A-Cath placement. TECHNIQUE: Frontal chest obtained at 12:18 p.m. and is compared to 02/23/2020. FINDINGS: Port-A-Cath is now seen over the left chest with catheter entering the left subclavian vein, and catheter tip overlying the SVC. Heart is borderline in size. Aorta is tortuous. Right midlung density appears similar to the prior study. There is a presumed pleural catheter overlying the right chest. IMPRESSION: New Port-A-Cath in place, as above. No pneumothorax or pleural fluid following device placement. No change in right midlung density. There appears to be a pleural catheter overlying the right chest. Dictated by: Dictated on workstation # [id number]
--- NOTE | 2020-03-03 17:59 | Diagnostic Imaging Report ---
INDICATION: Pleurx catheter placement. COMPARISON: None. TOTAL FLUOROSCOPY TIME: 6 seconds. TOTAL NUMBER OF FLUOROSCOPIC IMAGES SAVED: 1. EXAMINATION: Intraoperative image intensifier views of the chest were obtained during Pleurx catheter placement. FINDINGS: Evaluation of the image provided is suboptimal to assess for pneumothorax. Please note, interpreting radiologist was not present during the procedure. IMPRESSION: Fluoroscopic guidance provided during Pleurx catheter placement. Dictated by: Dictated on workstation # [id number]
--- NOTE | 2020-03-03 20:28 | OPERATIVE REPORT ---
DATE OF SERVICE: 03/03/2020 ATTENDING PRIMARY CARE PHYSICIAN: Dr. Kane Pickett. 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 PROCEDURE: Placement of left subclavian Groshong implantable catheter under fluoroscopy. Placement of right tunneled pleural catheter. SURGEON: Dr. Encinas. ANESTHESIA: Monitored anesthesia care with local. ESTIMATED BLOOD LOSS: Minimal. FINDINGS: Catheter tip at superior vena cava - right atrial junction. DISPOSITION: The patient tolerated the procedure well. INDICATIONS: The patient is a 65-year-old female known to us. She initially presented to the Emergency Department with shortness of breath. She does have a longstanding history of COPD as well as a smoking history and also currently smokes. A CT scan was performed on that admission and she was found to have a large right pleural effusion as well as possible liver cirrhosis and portal hypertension. On that admission, she underwent a thoracentesis and was treated for pneumonia and was discharged home. Approximately two weeks later, she did have recurrent shortness of breath and found to have recurrent right pleural effusion and underwent a thoracentesis as an outpatient. She then presented to [facility] with a recurrent shortness of breath and was found to have recurrent right pleural effusion. By the end of that admission, the pathology came back on the second thoracentesis, which came back as malignant pleural effusion consistent with a lung primary. Due to the malignant pleural effusion, this does make this a stage IV lung cancer. She will be scheduled for oncology referral and also need a Groshong implantable catheter as well as a tunneled thoracentesis catheter. DESCRIPTION OF PROCEDURE: The patient was brought to the operating room, laid supine on the table. After adequate IV pain and sedative medications and monitored anesthesia care, the chest and neck were prepped and draped in standard surgical fashion. A 1% lidocaine was then used to anesthetize the overlying skin in the left subclavian region. The left subclavian vein was then cannulated with drawing of venous blood. The guidewire was then inserted under fluoroscopy. The cannulating needle removed and a skin incision made using a 15 blade. The dilator and sheath were then introduced over the guidewire under fluoroscopy. The guidewire and dilator were then removed and the Groshong implantable catheter was placed through the sheath until the catheter tip was at the superior vena caval - right atrial junction. The inner wire within the catheter removed and the catheter cut down to size and port placed onto the catheter. The skin incision was then extended laterally and the chest reservoir was created using blunt dissection as well as electrocautery between the subcutaneous fat as well as the anterior pectoralis fascia. The port was then placed into the reservoir and sutured to the anterior pectoralis fascia using interrupted 3-0 Vicryl sutures. The subcutaneous tissue was then reapproximated using interrupted 3-0 Vicryl sutures. Skin was closed using 4-0 Monocryl running subcuticular suture. Wound was then cleaned and covered with Dermabond. The right chest was then prepped and draped in standard surgical fashion. The area was marked by ultrasound before the procedure. Two skin incisions were then made using a 15 blade and the catheter was tunneled through. The skin, subcutaneous tissue, intercostal muscles as well as were then anesthetized using 1% lidocaine. The cannulating needle was advanced with withdrawing of straw yellow transudative fluid. The guidewire was then inserted and the cannulating needle removed. The dilator and guidewire were then removed and the catheter was placed into the right pleural space without any resistance. The sheath was then removed. The skin incision was then closed using interrupted 3-0 nylon suture. The exit site of the catheter from the skin was then sutured with a 3-0 nylon suture. The catheter was accessed and 1 liter of straw yellow transudative fluid were evacuated. The catheter was then cleaned and covered with sterile dressing followed by large Op-Site. The patient tolerated the procedure well. We will get a post-procedure chest x-ray and we will recommend initially draining 1 liter per thoracentesis catheter every other day and the Groshong implantable catheter may be accessed and used at any time as well. Job ID: [id number] DocumentID: [id number] Dictated Date: 03/03/2020 12:09:04 Web Database Developer Date: 03/03/2020 20:28:04 Dictated By: ROGE ENCINAS MD
== END ==
LOC: SDC 08:49
PROVIDERS: ATTEND Surgery
DX: C34.91 Malignant neoplasm of unspecified part of right bronchus or lung (principal); I48.91 Unspecified atrial fibrillation; J44.9 Chronic obstructive pulmonary disease, unspecified; F41.9 Anxiety disorder, unspecified; K76.6 Portal hypertension; F17.210 Nicotine dependence, cigarettes, uncomplicated; Z79.899 Other long term (current) drug therapy; Z79.51 Long term (current) use of inhaled steroids
CPT/HCPCS: 36561; 71045; 76000; 76942; 87081; C1729; C1788

== ENCOUNTER 2020-03-06 03:55 | Emergency (ER) | payer MEDICARE ==
[~2020-03-06] VITALS: Ht 162 cm; Wt 90.0 kg
[~2020-03-06 03:55] MED LIST changes: -0.9% SODIUM CHLORIDE PF INJ 20 ML VIAL ONE; -ACETAMINOPHEN 325 MG TABLET PO PRN; -BUP/EPI 0.5% 1:200,000 (MARCAINE) 10ML VIAL IJ ONE; -HEParin (CENTRAL IV FLUSH) 500 UNIT/5 ML SYR ONE; -HYDROcodone/APAP 5 MG/325 MG (LORTAB) TAB PO ONE; -LACTATED RINGERS 1,000 ML IV PRN; -LEVO750T9 PO; -MIDAZOLAM 2 MG/2 ML (VERSED) VIAL ONE; -ONDANSETRON 4 MG/2 ML (SDV) Z0FRAN IVP PRN; -PANT40TA2 PO; -POLY17PO6 PO; -ceFAZolin 2 GM IV Premixed 50 ML IV ONE; -morphine INJ 10 MG/ML 1ML (SYR OR VIAL) IVP PRN; -proPOfol 200 MG/20 ML (DIPRIVAN) VIAL IV ONE
[2020-03-06] MEDS ORDERED: RX-ALBUTEROL INHALER (VENTOLIN HFA) 18 GM IH STA (04:04)
[2020-03-06] MEDS ORDERED: ANTACID SUSP 30 ML UDC (MYLANTA) PO ONE (04:15)
[2020-03-06] MEDS ORDERED: ONDANSETRON 4 MG/2 ML (SDV) Z0FRAN IVP ONE (04:15)
[2020-03-06] MEDS ORDERED: FAMOTIDINE 20MG/2ML IV (PEPCID) IVP ONE (04:15)
[2020-03-06] MEDS ORDERED: LIDOCAINE 2% VISCOUS 15 ML UDC PO ONE (04:15)
[2020-03-06 04:40] LABS: BASOPHILS % (AUTO) 0 % (0-10); EOSINOPHILS # (AUTO) 3.4 10^3/uL (0.0-0.3); EOSINOPHILS % (AUTO) 19 % (0-10); HEMATOCRIT 39 % (35-52); HEMOGLOBIN 12.6 G/DL (11.5-16.0); LYMPHOCYTES # (AUTO) 6.5 X 10^3 (1.0-4.0); LYMPHOCYTES % (AUTO) 36 % (12-44); MEAN CORPUSCULAR HEMOGLOBIN 29 PG (25-34); MEAN CORPUSCULAR HGB CONC 32 G/DL (32-36); MEAN CORPUSCULAR VOLUME 91 FL (80-99); MEAN PLATELET VOLUME 11.8 FL (7.4-10.4); MONOCYTES # (AUTO) 1.2 X 10^3 (0.0-1.0); MONOCYTES % (AUTO) 7 % (0-12); NEUTROPHILS % (AUTO) 39 % (42-75); PLATELET COUNT 105 10^3/uL (130-400); RED CELL DISTRIBUTION WIDTH 15.2 % (10.0-14.5); WHITE BLOOD COUNT 18.1 10^3/uL (4.3-11.0)
[2020-03-06 04:53] LABS: ALBUMIN 2.7 GM/DL (3.2-4.5); CHLORIDE 107 MMOL/L (98-107); POTASSIUM 4.1 MMOL/L (3.6-5.0); SODIUM 139 MMOL/L (135-145)
[2020-03-06 04:54] LABS: CALCIUM 7.9 MG/DL (8.5-10.1)
[2020-03-06 04:55] LABS: GLUCOSE 92 MG/DL (70-105)
[2020-03-06 04:56] LABS: TOTAL PROTEIN 4.5 GM/DL (6.4-8.2)
[2020-03-06 04:57] LABS: BILIRUBIN,TOTAL 0.4 MG/DL (0.1-1.0); CARBON DIOXIDE 24 MMOL/L (21-32)
[2020-03-06 04:59] LABS: ALKALINE PHOSPHATASE 88 U/L (40-136); GFR ESTIMATED > 60
[2020-03-06 05:00] LABS: BUN/CREATININE RATIO 21
[2020-03-06] MEDS ORDERED: PANTOPRAZOLE 40 MG (PROTONIX) VIAL IV ONE (05:00)
[2020-03-06 05:02] LABS: ALANINE AMINOTRANSFERASE 34 U/L (0-55)
[2020-03-06 05:03] LABS: LIPASE 24 U/L (8-78)
[2020-03-06] MEDS ORDERED: POLY17PO6 PO (05:06)
[2020-03-06] MEDS ORDERED: LEVO750T9 PO (05:06)
[2020-03-06] MEDS ORDERED: PANT40TA2 PO (05:06)
--- NOTE | 2020-03-06 05:06 | ED Abdominal Pain ---
General Chief Complaint: Abdominal/GI Problems Stated Complaint: RIB CAGE PAIN Nursing Triage Note: Pt arrives with epigastric pain that started this morning and woke her from sleep; pt reports that she hasn't had a BM in several days and is on pain medication which she is not used to taking. Pt also has a newly implanted port to her left upper chest as well as a drain to her right ribs. Pt is a newly diagnosed lung CA patient who has not started treatment yet. Sepsis Screen: No Definite Risk Source of Information: Patient, EMS Exam Limitations: No Limitations History of Present Illness Date Seen by Provider: Mar 06, 2020 Time Seen by Provider: 04:00 Initial Comments this 65-year-old woman presents to the emergency room with complaints of intense epigastric pain that woke her from sleep. She recently had a Pleurx drain placed on the right and a port placed on the left as part of her lung cancer treatments. She is not receiving any chemotherapy yet at this time. She has been on Augmentin and prednisone for pneumonia. She reports some difficulty with constipation and has not had a bowel movement in several days. She is afebrile. She is noted to have significant wheezing on exam as well. She has COPD and normally does breathing treatments at home. Allergies and Home Medications Allergies Coded Allergies: No Known Drug Allergies (Unverified , 12/28/18) Home Medications Albuterol Sulfate 18 Gm Hfa.aer.ad, 0 GM IH Q2H PRN for SHORTNESS OF AIR OR WHEEZING Prescribed by: MARTHA BRADLEY on 02/08/20 1141 Amoxicillin/Potassium Clav 1 Each Tablet, 1 EACH PO BID, (Reported) Hydrocodone/Acetaminophen 1 Each Tablet, 1 EACH PO Q4H Prescribed by: ROGE ENCINAS on 03/03/20 1027 Ipratropium/Albuterol Sulfate 3 Ml Ampul.neb, 3 ML IH Q4H PRN for SHORTNESS OF BREATH, (Reported) Levofloxacin 750 Mg Tablet, 750 MG PO DAILY Prescribed by: MILEY JANE on 03/06/20 0506 Pantoprazole Sodium 40 Mg Tablet.dr, 40 MG PO DAILY Prescribed by: MILEY JANE on 03/06/20 0506 Polyethylene Glycol 3350 17 Gm Powd.pack, 17 GM PO DAILY PRN for CONSTIPATION- 1ST LINE Once or twice daily mixed in 12 ounces of clear liquid Prescribed by: MILEY JANE on 03/06/20 0506 Prednisone 20 Mg Tab, 40 MG PO DAILY@0700 2 tab x3 days 1 tab x 3 days 1/2 tab x 4 days then STOP Prescribed by: MARTHA BRADLEY on 02/08/20 1141 Patient Home Medication List Home Medication List Reviewed: Yes Review of Systems Review of Systems Constitutional: no symptoms reported EENTM: No Symptoms Reported Respiratory: See HPI Cardiovascular: No Symptoms Reported Gastrointestinal: See HPI Genitourinary: No Symptoms Reported Musculoskeletal: no symptoms reported Skin: no symptoms reported Psychiatric/Neurological: No Symptoms Reported Endocrine: No Symptoms Reported Hematologic/Lymphatic: See HPI Past Wticywc-Raeeiw-Veufjh Hx Past Med/Social Hx: Reviewed and Corrections made Patient Social History Alcohol Use: Occasionally Uses Number of Drinks Today: GG Alcohol Beverage of Choice: Whiskey Recreational Drug Use: No Smoking Status: Current Everyday Smoker Type Used: Cigarettes 2nd Hand Smoke Exposure: Yes Recent Foreign Travel: No Contact w/Someone Who Travel: No Recent Infectious Disease Expo: No Recent Hopitalizations: No Immunizations Up To Date Date of Pneumonia Vaccine: Dec 05, 2018 Seasonal Allergies Seasonal Allergies: No Past Medical History Surgeries: Yes (cataract surgery) Ear Surgery Respiratory: Yes Pneumonia, Chronic Bronchitis, COPD Currently Using CPAP: No Currently Using BIPAP: No Cardiac: Yes Atrial Fibrillation, Hypertension Neurological: No Reproductive Disorders: No Genitourinary: No Gastrointestinal: No Musculoskeletal: Yes Chronic Back Pain Endocrine: No HEENT: Yes Cataract, Macular Degeneration Cancer: Yes Lung Did You Recieve Any Treatments: No Psychosocial: Yes Anxiety Integumentary: No Blood Disorders: No Family Medical History Alzheimer's disease 19 MOTHER Asthma G8 SISTER Cataracts 19 MOTHER G8 SISTER Colitis G8 SISTER Deafness or hearing loss 19 FATHER Dementia G8 SISTER FH: leukemia 19 FATHER FH: lung cancer G8 SISTER Hypertension 19 FATHER 19 MOTHER Physical Exam Vital Signs Vital Signs - First Documented 03/06/20 03:58 Temp 36.7 Pulse 88 Resp 22 B/P (MAP) 110/78 (89) Pulse Ox 93 O2 Delivery Nasal Cannula O2 Flow Rate 2.00 Capillary Refill : Less Than 3 Seconds Height/Weight/BMI Height: 5'5.00" Weight: 213lbs. 1.6oz. 96.003424ae; 34.00 BMI Method:Stated General Appearance: WD/WN, mild distress HEENT: PERRL/EOMI, normal ENT inspection, pharynx normal Neck: normal inspection Respiratory: no respiratory distress, no accessory muscle use, wheezing Cardiovascular: regular rate, rhythm, no edema, no murmur Gastrointestinal: normal bowel sounds, soft, tenderness (epigastrium) Extremities: normal inspection, no pedal edema Neurologic/Psychiatric: academy education director II-XII nml as tested, no motor/sensory deficits, alert, normal mood/affect, oriented x 3 Skin: normal color, warm/dry Progress/Results/Core Measures Results/Orders Lab Results Laboratory Tests Test 03/06/20 04:20 Range/Units White Blood Count 18.1 H 4.3-11.0 10^3/uL Red Blood Count 4.31 L 4.35-5.85 10^6/uL Hemoglobin 12.6 11.5-16.0 G/DL Hematocrit 39 35-52 % Mean Corpuscular Volume 91 80-99 FL Mean Corpuscular Hemoglobin 29 25-34 PG Mean Corpuscular Hemoglobin Concent 32 32-36 G/DL Red Cell Distribution Width 15.2 H 10.0-14.5 % Platelet Count 105 L 130-400 10^3/uL Mean Platelet Volume 11.8 H 7.4-10.4 FL Neutrophils (%) (Auto) 39 L 42-75 % Lymphocytes (%) (Auto) 36 12-44 % Monocytes (%) (Auto) 7 0-12 % Eosinophils (%) (Auto) 19 H 0-10 % Basophils (%) (Auto) 0 0-10 % Neutrophils # (Auto) 7.0 1.8-7.8 X 10^3 Lymphocytes # (Auto) 6.5 H 1.0-4.0 X 10^3 Monocytes # (Auto) 1.2 H 0.0-1.0 X 10^3 Eosinophils # (Auto) 3.4 H 0.0-0.3 10^3/uL Basophils # (Auto) 0.0 0.0-0.1 10^3/uL Neutrophils % (Manual) 38 % Lymphocytes % (Manual) 29 % Monocytes % (Manual) 8 % Eosinophils % (Manual) 22 % Atypical Lymphocytes 3 % Poikilocytosis SLIGHT Basophilic Stippling MODERATE Anisocytosis SLIGHT Sodium Level 139 135-145 MMOL/L Potassium Level 4.1 3.6-5.0 MMOL/L Chloride Level 107 98-107 MMOL/L Carbon Dioxide Level 24 21-32 MMOL/L Anion Gap 8 5-14 MMOL/L Blood Urea Nitrogen 15 7-18 MG/DL Creatinine 0.70 0.60-1.30 MG/DL Estimat Glomerular Filtration Rate > 60 BUN/Creatinine Ratio 21 Glucose Level 92 70-105 MG/DL Calcium Level 7.9 L 8.5-10.1 MG/DL Corrected Calcium 8.9 8.5-10.1 MG/DL Total Bilirubin 0.4 0.1-1.0 MG/DL Aspartate Amino Transf (AST/SGOT) 29 5-34 U/L Alanine Aminotransferase (ALT/SGPT) 34 0-55 U/L Alkaline Phosphatase 88 40-136 U/L Total Protein 4.5 L 6.4-8.2 GM/DL Albumin 2.7 L 3.2-4.5 GM/DL Lipase 24 8-78 U/L My Orders Orders - MILEY NGO MD Rx-Albuterol Inhaler (Rx-Ventolin Hfa) (03/06/20 04:04) Cbc With Automated Diff (03/06/20 04:04) Comprehensive Metabolic Panel (03/06/20 04:04) Lipase (03/06/20 04:04) Ed Iv/Invasive Line Start (03/06/20 04:04) O2 (03/06/20 04:04) Chest 1 View, Ap/Pa Only (03/06/20 04:04) Lidocaine 2% Viscous 15 Ml (Xylocaine Vi (03/06/20 04:15) Antacid Suspension (Mylanta Suspension (03/06/20 04:15) Famotidine Injection (Pepcid Injection) (03/06/20 04:15) Ondansetron Injection (Zofran Injectio (03/06/20 04:15) Manual Differential (03/06/20 04:20) Pantoprazole Injection (Protonix Injecti (03/06/20 05:00) Medications Given in ED Current Medications Medications Dose Ordered Sig/Brian Route Start Time Stop Time Status Last Admin Dose Admin Al Hydrox/Mg Hydrox/Simethicone 30 ml ONCE ONCE PO 03/06/20 04:15 03/06/20 04:16 DC 03/06/20 04:28 30 ML Famotidine 20 mg ONCE ONCE IVP 03/06/20 04:15 03/06/20 04:16 DC 03/06/20 04:23 20 MG Lidocaine HCl 15 ml ONCE ONCE PO 03/06/20 04:15 03/06/20 04:16 DC 03/06/20 04:28 15 ML Ondansetron HCl 4 mg ONCE ONCE IVP 03/06/20 04:15 03/06/20 04:16 DC 03/06/20 04:23 4 MG Pantoprazole 40 mg ONCE ONCE IV 03/06/20 05:00 03/06/20 05:01 DC 03/06/20 05:07 40 MG Vital Signs/I&O 03/06/20 03/06/20 03:58 05:25 Temp 36.7 Pulse 88 89 Resp 22 22 B/P (MAP) 110/78 (89) 114/83 Pulse Ox 93 93 O2 Delivery Nasal Cannula Nasal Cannula O2 Flow Rate 2.00 2.00 Blood Pressure Mean: 89 Progress Progress Note : Progress Note An inhaler was provided to treat the wheezing. Zofran, Pepcid, and GI cocktail were administered and significantly improved her pain. Antibiotic was changed from Augmentin to Levaquin as there appears to be an increasing opacification in the right lower lung and the Augmentin is likely contributing to her epigastric pain. Diagnostic Imaging Diagonstic Imaging: Xray Plain Films/CT/US/NM/MRI: chest Comments chest x-ray viewed by me and report not yet available. Compared with prior. There appears to be increased density in the right lower lung. Departure Impression Primary Impression: Epigastric pain Additional Impressions: Lung cancer Qualified Codes: C34.91 - Malignant neoplasm of unspecified part of right bronchus or lung Constipation Qualified Codes: K59.00 - Constipation, unspecified COPD exacerbation Disposition: 01 HOME, SELF-CARE Condition: Improved Departure-Patient Inst. Decision time for Depature: 05:02 Referrals: NO,LOCAL PHYSICIAN (PCP/Family) Primary Care Physician Patient Instructions: Severe Abdominal Pain, Adult (DC) Add. Discharge Instructions: Your pain may be related to gastritis. Start Protonix as prescribed to help reduce stomach acid. Antibiotics are also being added to help with your COPD exacerbation and to ensure we are treating for any possible developing pneumonia. Please start antibiotics today. Complete your steroids as prescribed. Follow-up with your primary care provider soon as possible. For constipation use MiraLAX as prescribed. Return to care if you have any worsening symptoms. Drink plenty of clear liquids to stay well-hydrated. All discharge instructions reviewed with patient and/or family. Voiced understanding. Scripts Polyethylene Glycol 3350 (Miralax) 17 Gm Powd.pack 17 GM PO DAILY PRN for CONSTIPATION-1ST LINE, #1 EACH Once or twice daily mixed in 12 ounces of clear liquid Prov: MILEY NGO MD 03/06/20 Pantoprazole Sodium (Protonix) 40 Mg Tablet.dr 40 MG PO DAILY, #30 TAB Prov: MILEY NGO MD 03/06/20 Levofloxacin (Levaquin) 750 Mg Tablet 750 MG PO DAILY, #5 TAB Prov: MILEY NGO MD 03/06/20 MILEY NGO MD Mar 06, 2020 05:06
[2020-03-06 05:22] LABS: ANISOCYTOSIS SLIGHT; ATYPICAL LYMPHOCYTES 3 %; EOSINOPHILS % (MANUAL) 22 %; LYMPHOCYTES % (MANUAL) 29 %; MONOCYTES % (MANUAL) 8 %; NEUTROPHILS % (MANUAL) 38 %; POIKILOCYTOSIS SLIGHT
[2020-03-06 05:25] VITALS: BP 114/83
--- NOTE | 2020-03-06 05:25 | Diagnostic Imaging Report ---
Indication: Epigastric pain Portable chest 4:21 AM There is right perihilar infiltrate. Left subclavian Port-A-Cath tip projects over the SVC. There is some right medial basal atelectasis. There are no effusions or pneumothoraces. IMPRESSION: Right perihilar consolidation unchanged compared to 03/03/2020. Dictated by: Dictated on workstation # [id number]
== END 2020-03-06 05:15 | disposition home or self-care (01) ==
LOC: EDUNIT# 03:55 → ER 04:00
DX: R10.13 Epigastric pain (principal); K59.00 Constipation, unspecified; J44.1 Chronic obstructive pulmonary disease with (acute) exacerbation; C34.90 Malignant neoplasm of unspecified part of unspecified bronchus or lung; G89.29 Other chronic pain; M54.9 Dorsalgia, unspecified; Z82.49 Family history of ischemic heart disease and other diseases of the circulatory system; Z80.1 Family history of malignant neoplasm of trachea, bronchus and lung; Z80.6 Family history of leukemia; F17.210 Nicotine dependence, cigarettes, uncomplicated; Z79.52 Long term (current) use of systemic steroids; Z79.891 Long term (current) use of opiate analgesic
CPT/HCPCS: 36415; 36556; 71045; 80053; 83690; 85007; 85027

== ENCOUNTER 2020-03-08 12:44 | Outpatient (RCR) | payer MEDICARE ==
[~2020-03-08 12:44] MED LIST changes: +LEVO750T9 PO; -NICO-588 TD; +NICO-685 TD; +PANT40TA2 PO; +POLY17PO6 PO
== END 2020-06-06 | disposition home or self-care (01) ==
LOC: ONC 12:44
PROVIDERS: ATTEND Internal Medicine Hematology & Oncology
DX: C34.91 Malignant neoplasm of unspecified part of right bronchus or lung (principal); J90 Pleural effusion, not elsewhere classified; J44.9 Chronic obstructive pulmonary disease, unspecified; K70.30 Alcoholic cirrhosis of liver without ascites; K76.6 Portal hypertension; E66.9 Obesity, unspecified; F17.210 Nicotine dependence, cigarettes, uncomplicated; Z98.890 Other specified postprocedural states
CPT/HCPCS: 99214